=== PATIENT | female | born 1980 | race Caucasian/White ===

== ENCOUNTER 2016-08-10 15:31 | Inpatient (IN) | payer BC ==
[~2016-08-10] VITALS: Ht 170.2 cm; Wt 85.3 kg
[~2016-08-10 15:31] MED LIST: ALBUAER19 INH; BNT20 PO; FURO20TA PO; OMEP40CA36 PO; PEDICHW53 PO; PRVHFAIN INH; SPRN100 PO; TRAM-10 PO
[2016-08-10 16:30] VITALS: BP 116/78; TEMP 37.4; Ht 170.2 cm; Wt 85.3 kg
[2016-08-10 16:45] VITALS: BP 116/78; PULSE 115; TEMP 37.4; O2SAT 97
[2016-08-10] MEDS ORDERED: POTA10CA28 PO (17:37)
[2016-08-10] MEDS ORDERED: TRAM-10 PO (17:37)
[2016-08-10] MEDS ORDERED: ONDA4TAB46 PO (17:37)
[2016-08-10] MEDS ORDERED: NYSS/ (17:37)
[2016-08-10] MEDS ORDERED: ALBINS/ INH (17:37)
[2016-08-10] MEDS ORDERED: FERRTAB18 (17:37)
[2016-08-10] MEDS ORDERED: MAGN400T6 PO (17:37)
[2016-08-10] MEDS ORDERED: LEVO-459 (17:37)
[2016-08-10] MEDS ORDERED: ONDANSETRON INJ 2 MG/ML 2 ML VIAL IV PRN (18:30)
[2016-08-10] MEDS ORDERED: POLYETHYLENE (MIRALAX) 17 GM PACK PO PRN (18:30)
[2016-08-10] MEDS ORDERED: ALUMINUM/MAGNESIUM/SIMETH (MAALOX MAX) 30 ML UDC PO PRN (18:30)
[2016-08-10] MEDS ORDERED: TRAMADOL HCL 50 MG TAB PO PRN (18:45)
[2016-08-10] MEDS ORDERED: ALBUTEROL HFA 8 GM INHALER INH PRN (18:45)
--- NOTE | 2016-08-10 19:23 | History and Physical ---
History & Physical Date & Time of Service: Aug 10, 2016 at 19:18 Chief Complaint: Pneumonia Primary Care Physician: Roxie Frost M.D. History of Present Illness Source: patient, hospital records 36 Yr old female with PMH of JACOBO Cirrhosis, Chronic Anemia s/p Gastric Bye- pass who is currently being evaluated for liver transplant if she remains consistently abstinent from alcohol. She is admitted directly by her PCP Dr. Frost after being evaluated in her office for SOB, orthopnea, cough, abdominal pain associated with distention, lightheadedness and generalized weakness although has been afebrile. Patient was evaluated during her admission in Jul 2016 and had negative HIDA scan, CTA negative for PE and she had Normal Echocardiogram. Currently she complains of worsening SOB since last week associated with non productive cough and orthopnea, increases with exertion. She is c/o abdominal pain which is diffuse but predominantly in RUQ, increased abdominal distention, has intermittent cramps, non radiating, no aggravating/ relieving factors. Has been on Levaquin as outpatient. Denies any fever, chills, chest pain, change in weight, appetite, change in bowel habits but admits to having nausea without vomiting and increased leg swelling. HR has been running high in 110- 120. Currently no labs/imaging studies available. Past Medical/Surgical History Medical Problems: (1) Chronic anemia Status: Chronic (2) Nonalcoholic steatohepatitis (JACOBO) Status: Chronic Surgical Problems: (1) S/P gastric bypass Status: Resolved Family History Cancer Diabetes mellitus Social History Smoking Status: Never Smoker Drug Use: none Marital Status: Housing status: lives with family Occupational Status: employed Immunizations History of Influenza Vaccine: Unknown History of Tetanus Vaccine?: Yes Tetanus Immunization Date: Oct 08, 2009 Multi-Drug Resistant Organisms History of MDRO: No Allergies Coded Allergies: Dexmethylphenidate (Verified Allergy, Severe, CANNOT BREATHE, 01/28/15) Shrimp (Verified Allergy, Mild, HIVES, 01/28/15) Latex1 -Allergic Contact Dermititis (Verified Allergy, Unknown, BURNING SENSATION, RASH, RAISED WELTS, 01/27/15) Ibuprofen (Verified Adverse Reaction, Intermediate, "NOT ALLOWED" DUE TO H /O GASTRIC BYPASS, 10/07/09) Home Medications Scheduled Albuterol Sulf (Proventil 0.083% 2.5MG/3ML), 2.5 MG INH QID Dicyclomine HCl (Dicyclomine HCl), 20 MG PO BID Furosemide (Lasix), 40 MG PO DAILY Omeprazole (Prilosec), 1 CAP PO BID Pediatric Multiple Vitamin W/ (Flintstones Gummies), 2 TABS PO DAILY Potassium Chloride (Micro-K Ext Rel), 10 MEQ PO BID Spironolactone (Spironolactone), 100 MG PO DAILY Scheduled PRN Albuterol (Ventolin Hfa), 2 PUFFS INH DAILY PRN for Shortness of Breath Albuterol Inhaler (Ventolin Inhaler), 2 PUFFS INH Q4 PRN for Shortness of Breath Ondansetron Hcl (Zofran), 4 MG PO for Nausea Tramadol (Ultram), 50 MG PO Q8H PRN for Pain Tramadol (Ultram), 50 MG PO Q4H PRN for Pain Miscellaneous Medications Iron-Vitamin C (Vitron-C) Levofloxacin (Levaquin) Magnesium Oxide (Mag-Ox), 400 MG PO Nystatin (Nystatin Suspension) Review of Systems See HPI for pertinent positives & negatives. A total of 10 systems reviewed and were otherwise negative. Physical Exam Vital Signs Date Time Temp Pulse Resp B/P Pulse Ox O2 Delivery O2 Flow Rate FiO2 08/10/16 16:45 37.4 115 20 116/78 97 Room Air 08/10/16 16:30 Room Air 08/10/16 16:30 37.4 20 116/78 Room Air General Appearance: WD/WN, + mild distress Head: normocephalic, atraumatic Eyes: normal inspection, PERRL, EOMI, + abnormal sclerae exam (Has Icterus) ENT: normal ENT inspection, hearing grossly normal, TMs normal, pharynx normal Neck: supple, no adenopathy, thyroid normal, no JVD, no carotid bruits, trachea midline Respiratory/Chest: chest non-tender, normal breath sounds, + pertinent finding (Decreased breath sounds at bases B/L.) Cardiovascular: regular rate, rhythm, no gallop, no JVD, normal peripheral pulses Abdomen/GI: normal bowel sounds, + tenderness (Some pain/discomfort on deep palpation), + distended Back: normal inspection, no CVA tenderness, no muscle spasm, normal range of motion Extremities/Musculoskelatal: normal inspection, no calf tenderness, normal capillary refill, normal range of motion, + pedal edema Neurologic/Psych: alert, normal mood/affect, normal reflexes, oriented x 3 Skin: normal color, warm/dry, no rash Lymphatic: no adenopathy Diagnostics Laboratory Results Results Past 24 Hours Test 08/10/16 18:30 Range/Units Impression Assessment and Plan Worsening Ascites R/O SBP: Being admitted to Medical floor. -Ordered the initial work up including CBC, CMP, PT/PTT, U/S Abdomen. -Requested GI consult -Decision about Paracentesis after U/S is done. -Continue Lasix & Aldactone -Fluid restriction -Holding antibiotics till decision regarding paracentesis is made. Tachycardia: Likely due to intra-vascular volume depletion. -May benefit from low dose B-darrin but defer it to GI. SOB/Cough: Will follow up lab results and Chest X-Ray JACOBO Cirrhosis: Will follow up U/S Abdomen. -GI consulted -Line Manager to be abstinent from alcohol use Chronic Anemia:Labs pending S/P Gastric Bypass Surgery: Stable. DVT Prophylaxis: SCDs. Code Status : Full Code Disposition: Discharge once is clinically stable. Advanced Directives Existing Advance Directive: Yes Existing Living Will: Yes Existing Power of Soiled Linen Distributor: Yes Resuscitation Status FULL RESUSCITATION VTE Prophylaxis VTE Risk Assessment Done? Y/N: Yes Risk Level: Low Given or contraindicated: SCD's
--- NOTE | 2016-08-10 19:55 | DIAGNOSTIC IMAGING REPORT ---
CHEST 2 VIEWS ROUTINE CLINICAL HISTORY: Shortness of breath. Evaluate for pneumonia. COMPARISON STUDY: Chest radiograph July 22, 2016. FINDINGS: Lung volumes are diminished. This is unchanged. There are small bilateral pleural effusions, left larger than right. Cardiomediastinal silhouette is stable. Right mid and lower lung opacity suggests atelectasis. Left basilar opacity could reflect atelectasis or consolidation. This is unchanged. There is no evidence of pulmonary edema IMPRESSION: 1. Diminished lung volumes with right basilar atelectasis. Left basilar opacity could reflect atelectasis or consolidation. 2. Small bilateral pleural effusions. Electronically signed by: Liborio Smith M.D. 08/10/2016 7:53 PM Dictated Date/Time: 08/10/2016 7:52 PM
[2016-08-10] MEDS: ALBUTEROL 0.083% NEBU SOLN 3 ML VIAL INH SCH (20:00)
[2016-08-10 20:24] LABS: BASO % 0.1 %; BASO ABS # 0.02 K/uL (0-0.2); EOS % 0.9 %; HEMATOCRIT 27.6 % (37-47); IG% 0.4 %; LYMPH % 17.1 %; LYMPH ABS # 2.82 K/uL (1.2-3.4); MEAN CELL VOLUME 87.6 fL (80-100); MEAN CORPUSCULAR HEMOGLOBIN 29.2 pg (25-34); MEAN CORPUSCULAR HGB CONC 33.3 g/dl (32-36); MEAN PLATELET VOLUME 11.3 fL (7.4-10.4); MONO % 5.6 %; NEUT % 75.9 %; PLATELET COUNT 202 K/uL (130-400); RED BLOOD COUNT 3.15 M/uL (4.2-5.4); WHITE BLOOD COUNT 16.49 K/uL (4.8-10.8)
[2016-08-10] MEDS: NYSTATIN SUSP 500,000 U/5 ML UDC BU SCH (20:24)
[2016-08-10] MEDS: DICYCLOMINE HCL 20 MG TAB PO SCH (20:25)
[2016-08-10] MEDS: PANTOprazole SOD 40 MG TAB PO SCH (20:26)
[2016-08-10 20:43] LABS: INR 2.5 (0.9-1.1); PARTIAL THROMBOPLASTIN RATIO 1.8; PROTHROMBIN TIME (PATIENT) 28.1 SECONDS (9.0-12.0)
[2016-08-10 20:50] LABS: ALB/GLOB RATIO 0.4 (0.9-2); ALKALINE PHOSPHATASE 144 U/L (45-117); ALT/SGPT 15 U/L (12-78); BLOOD UREA NITROGEN 5 mg/dl (7-18); BUN/CREATININE RATIO 5.2 (10-20); CALCIUM 7.8 mg/dl (8.5-10.1); CARBON DIOXIDE 28 mmol/L (21-32); CHLORIDE 97 mmol/L (98-107); GLUCOSE 82 mg/dl (70-99); SODIUM 134 mmol/L (136-145)
[2016-08-10 20:56] LABS: ANISOCYTOSIS PRESENT; COMPLETE YES; POLYCHROMASIA 1+; TARGET CELLS 1+
--- NOTE | 2016-08-10 21:19 | DIAGNOSTIC IMAGING REPORT ---
ULTRASOUND TO ASSESS FOR ASCITES CLINICAL HISTORY: Cirrhosis. Assess ascites. COMPARISON STUDY: Abdominal ultrasound July 22, 2016 FINDINGS: Incidental note was made of a left pleural effusion. A small to moderate amount of ascites was noted within the abdomen and pelvis. IMPRESSION: Small to moderate ascites. Electronically signed by: Liborio Smith M.D. 08/10/2016 9:17 PM Dictated Date/Time: 08/10/2016 9:15 PM
[2016-08-10 22:00] LABS: MAGNESIUM 1.5 mg/dl (1.8-2.4); POTASSIUM 3.4 mmol/L (3.5-5.1)
[2016-08-10] MEDS: POTASSIUM CHLORIDE 10 MEQ TABCR PO SCH (22:45)
[2016-08-10 23:26] VITALS: BP 93/58; PULSE 108; TEMP 37; O2SAT 92
[2016-08-11] VITALS (8 sets, daily range): BP systolic 93–97; BP diastolic 56–61; PULSE 79–115; TEMP 36.7–36.8; O2SAT 92–98
[2016-08-11] MEDS: ALBUTEROL 0.083% NEBU SOLN 3 ML VIAL INH SCH ×4 (07:36→19:14)
[2016-08-11 07:44] LABS: BASO % 0.1 %; BASO ABS # 0.01 K/uL (0-0.2); EOS % 1.1 %; HEMATOCRIT 25.9 % (37-47); IG% 0.3 %; LYMPH % 15.5 %; LYMPH ABS # 1.91 K/uL (1.2-3.4); MEAN CELL VOLUME 87.8 fL (80-100); MEAN CORPUSCULAR HEMOGLOBIN 29.5 pg (25-34); MEAN CORPUSCULAR HGB CONC 33.6 g/dl (32-36); MEAN PLATELET VOLUME 11.4 fL (7.4-10.4); PLATELET COUNT 170 K/uL (130-400); RED BLOOD COUNT 2.95 M/uL (4.2-5.4); WHITE BLOOD COUNT 12.35 K/uL (4.8-10.8)
[2016-08-11] MEDS ORDERED: MAGNESIUM OXIDE 400 MG TAB PO SCH (08:00)
[2016-08-11 08:10] LABS: COMPLETE YES; MICROCYTOSIS PRESENT; TARGET CELLS 1+
[2016-08-11 08:13] LABS: BUN/CREATININE RATIO 4.9 (10-20); CREATININE 0.95 mg/dl (0.60-1.20); POTASSIUM 3.2 mmol/L (3.5-5.1)
[2016-08-11] MEDS: PANTOprazole SOD 40 MG TAB PO SCH ×2 (08:29→19:54)
[2016-08-11] MEDS: DICYCLOMINE HCL 20 MG TAB PO SCH ×2 (08:29→19:53)
[2016-08-11] MEDS: FUROSEMIDE 20 MG TAB PO SCH (08:29)
[2016-08-11] MEDS: SPIRONOLACTONE 100 MG TAB PO SCH (08:30)
[2016-08-11] MEDS: NYSTATIN SUSP 500,000 U/5 ML UDC BU SCH ×3 (08:30→19:53)
[2016-08-11] MEDS: POTASSIUM CHLORIDE 10 MEQ TABCR PO SCH ×2 (08:31→20:52)
[2016-08-11 08:45] LABS: MANUAL MICROSCOPIC REQUIRED? YES; URINE APPEARANCE CLOUDY (CLEAR); URINE COLOR AMBER; URINE NITRITE NEG (NEG); URINE SPECIFIC GRAVITY >= 1.030 (1.000-1.030); UROBILINOGEN NEG (NEG)
[2016-08-11 08:47] LABS: REVIEW REQ? NO; URINE BILIRUBIN 2+ (NEG)
[2016-08-11 09:45] LABS: URINE AMORPHOUS SEDIMENT PRESENT (NONE PRSENT); URINE MUCUS PRESENT (NONE PRSENT); URINE RBC 0-4 /hpf (0-4)
[2016-08-11 09:46] LABS: URINE BACTERIA 1+ (NEG)
--- NOTE | 2016-08-11 12:46 | Gastrointestinal Consultation ---
Gastrointestinal Consultation Date of Consultation: Aug 11, 2016 Consulting Physician: Dr. Mendoza Reason for Consultation: cirrhosis History of Present Illness Patient is a 36 year old female who was recently admitted 07/05/16 and 07/23/16 for abnormal LFTs, abd pain and anemia with past medical history significant for JACOBO, anemia, obesity (s/p gastric bypass) who was directly admitted from a PCP office for concern regarding her white count, diminished lung sounds and elevated total bilirubin. She states that she was discharged last admission and still was not feeling well, noting much difficulty breathing and SOB with activity. GI was consulted for ongoing management of liver disease and evaluation of ascites, abd distention. She denies any chance in her abdominal girth or worsening distention. She denies any new lower extremity edema. Denies weight gain. She states that she has been taking her medications as prescribed and has been abstaining from alcohol. However, she was not following a low sodium, fluid restricted diet. Abdominal pain is unchanged from previous admissions, bilateral upper quadrants and epigastric in location, does not radiate and is intermittent. She described the pain as cramping. She denies chest pain, fever, chills, weight gain/loss, bloody/black stools. Most recent labs as patient refused repeat liver profile and ammonia at this time as she did not want another needle stick today: INR: 2.5 PT: 28 PTT: 47 PLT: 170 TB 5.2 AST: 93 ALT:15 ALKP:155 HGB 8.7 HCT 25.9 US abdomen 08/11/16: Incidental note was made of a left pleural effusion. A small to moderate amount of ascites was noted within the abdomen and pelvis. US abdomen 07/22/16 : Small to mild amount of scattered ascites within the abdomen and pelvis US liver 07/22/16 : Small progressive accumulation of gallbladder sludge compared to the prior study. Minimal prominence of the gallbladder wall. Biliary ductal system remains unremarkable 5 mm. Liver remains heterogeneous. Bidirectional flow within the portal venous structures is again noted. Pancreas and right kidney are unremarkable. Last colonoscopy and EGD were done in 2014. Both reports were normal. Past Medical/Surgical History Medical Problems: (1) Abnormal LFTs Status: Acute (2) Anemia Status: Acute (3) Hyperammonemia Status: Acute (4) Hypokalemia Status: Acute (5) JACOBO (nonalcoholic steatohepatitis) Status: Acute (6) Upper abdominal pain Status: Acute Family History Cancer Diabetes mellitus Social History Smoking Status: Never Smoker Alcohol Use: occasionally Drug Use: none Marital Status: Housing Status: lives with family Occupation Status: employed Allergies Coded Allergies: Dexmethylphenidate (Verified Allergy, Severe, CANNOT BREATHE, 01/28/15) Shrimp (Verified Allergy, Mild, HIVES, 01/28/15) Latex1 -Allergic Contact Dermititis (Verified Allergy, Unknown, BURNING SENSATION, RASH, RAISED WELTS, 01/27/15) Ibuprofen (Verified Adverse Reaction, Intermediate, "NOT ALLOWED" DUE TO H /O GASTRIC BYPASS, 10/07/09) Current Medications Home Meds and Scripts Medications Dose Route/Sig Max Daily Dose Days Date Category Proventil 0.083% 2.5MG/3ML (Albuterol Sulf) 2.5 Mg/3 Ml Nebu 2.5 Mg INH QID 08/10/16 Reported Vitron-C (Iron-Vitamin C) 1 Tab Tab 08/10/16 Reported Mag-Ox (Magnesium Oxide) 400 Mg Tab 400 Mg PO 08/10/16 Reported Levaquin (Levofloxacin) 500 Mg Tab 08/10/16 Reported Zofran (Ondansetron HCl) 4 Mg Tab 4 Mg PO PRN 08/10/16 Reported Ultram (Tramadol HCl) 50 Mg Tab 50 Mg PO Q4H PRN 08/10/16 Reported Nystatin Suspension (Nystatin) 1 Ml Susp 08/10/16 Reported Micro-K Ext Rel (Potassium Chloride) 10 Meq Capcr 10 Meq PO BID 08/10/16 Reported Ultram (Tramadol HCl) 50 Mg Tab 50 Mg PO Q8H PRN 07/25/16 Rx Spironolactone 100 Mg Tab 100 Mg PO DAILY 30 07/25/16 Rx Lasix (Furosemide) 20 Mg Tab 40 Mg PO DAILY 30 07/25/16 Rx Prilosec (Omeprazole) 40 Mg Cap 1 Cap PO BID 90 07/07/16 Rx Ventolin Hfa (Albuterol) 60 Puffs/5400 Mcg Aers 2 Puffs INH DAILY PRN 30 07/07/16 Rx Dicyclomine HCl 20 Mg Tab 20 Mg PO BID 30 07/07/16 Rx Flintstones Gummies (Pediatric Multiple Vitamin W/) 1 Chw Chw 2 Tabs PO DAILY 07/05/16 Reported Ventolin Inhaler (Albuterol) Aers 2 Puffs INH Q4 PRN 01/27/15 Reported Review of Systems Constitutional: No chills, No fever Respiratory: + cough, + shortness of breath Cardiac: No chest pain, No edema Abdomen: + nausea, + pain, No GI bleeding, No constipation, No diarrhea, No vomiting Neuro: + numbness/tingling (bilateral extremeities - she states she made the hospitalist aware of this new finding ) Skin: + itch, + jaundice, No bleeding, No color change Physical Exam Date Time Temp Pulse Resp B/P Pulse Ox O2 Delivery O2 Flow Rate FiO2 08/11/16 11:16 85 18 98 Room Air 08/11/16 08:00 92 Room Air 08/11/16 07:36 111 18 92 Room Air 08/11/16 07:32 36.7 102 20 93/56 93 Room Air 08/11/16 02:38 85 18 97 Room Air 08/11/16 00:43 Room Air 08/10/16 23:26 37.0 108 16 93/58 92 Room Air 08/10/16 16:45 37.4 115 20 116/78 97 Room Air 08/10/16 16:30 Room Air 08/10/16 16:30 37.4 20 116/78 Room Air General Appearance: no apparent distress Eyes: PERRL ENT: hearing grossly normal Neck: supple, trachea midline Respiratory/Chest: lungs clear, no respiratory distress, no accessory muscle use, + decreased breath sounds (dimished breaht sounds bilaterally at the base ) Cardiovascular: regular rate, rhythm, no edema, no gallop, no JVD, no murmur Abdomen: normal bowel sounds, soft, no organomegaly, no pulsatile mass, + tenderness (diffuse tenderness x 4 quadrants ) Neurologic/Psych: alert, normal mood/affect, oriented x 3 Skin: warm/dry, no rash, + jaundice Laboratory Results Last 24 Hours Test 08/10/16 20:15 08/10/16 21:22 08/11/16 07:09 08/11/16 08:08 White Blood Count 16.49 K/uL 12.35 K/uL Red Blood Count 3.15 M/uL 2.95 M/uL Hemoglobin 9.2 g/dL 8.7 g/dL Hematocrit 27.6 % 25.9 % Mean Corpuscular Volume 87.6 fL 87.8 fL Mean Corpuscular Hemoglobin 29.2 pg 29.5 pg Mean Corpuscular Hemoglobin Concent 33.3 g/dl 33.6 g/dl Platelet Count 202 K/uL 170 K/uL Mean Platelet Volume 11.3 fL 11.4 fL Neutrophils (%) (Auto) 75.9 % 76.0 % Lymphocytes (%) (Auto) 17.1 % 15.5 % Monocytes (%) (Auto) 5.6 % 7.0 % Eosinophils (%) (Auto) 0.9 % 1.1 % Basophils (%) (Auto) 0.1 % 0.1 % Neutrophils # (Auto) 12.51 K/uL 9.39 K/uL Lymphocytes # (Auto) 2.82 K/uL 1.91 K/uL Monocytes # (Auto) 0.93 K/uL 0.86 K/uL Eosinophils # (Auto) 0.15 K/uL 0.14 K/uL Basophils # (Auto) 0.02 K/uL 0.01 K/uL RDW Standard Deviation 68.8 fL 70.4 fL RDW Coefficient of Variation 22.2 % 22.7 % Immature Granulocyte % (Auto) 0.4 % 0.3 % Immature Granulocyte # (Auto) 0.06 K/uL 0.04 K/uL Polychromasia 1+ Anisocytosis PRESENT Target Cells 1+ 1+ Prothrombin Time 28.1 SECONDS Prothromb Time International Ratio 2.5 Activated Partial Thromboplast Time 46.7 SECONDS Partial Thromboplastin Ratio 1.8 Sodium Level 134 mmol/L 137 mmol/L Potassium Level mmol/L 3.4 mmol/L 3.2 mmol/L Chloride Level 97 mmol/L 97 mmol/L Carbon Dioxide Level 28 mmol/L 27 mmol/L Anion Gap 9.0 mmol/L 13.0 mmol/L Blood Urea Nitrogen 5 mg/dl 5 mg/dl Creatinine 1.00 mg/dl 0.95 mg/dl Est Creatinine Clear Calc Drug Dose 89.0 ml/min 93.6 ml/min Estimated GFR () 85.1 90.6 Estimated GFR (Non- 73.5 78.1 BUN/Creatinine Ratio 5.2 4.9 Random Glucose 82 mg/dl 79 mg/dl Calcium Level 7.8 mg/dl 8.0 mg/dl Magnesium Level mg/dl 1.5 mg/dl Total Bilirubin 5.2 mg/dl Aspartate Amino Transf (AST/SGOT) U/L 93 U/L Alanine Aminotransferase (ALT/SGPT) 15 U/L Alkaline Phosphatase 144 U/L Total Protein 6.7 gm/dl Albumin 1.8 gm/dl Globulin 4.9 gm/dl Albumin/Globulin Ratio 0.4 Lipase 72 U/L Microcytosis PRESENT Urine Color MIKEY Urine Appearance CLOUDY Urine pH 5.0 Urine Specific [place] >= 1.030 Urine Protein TRACE Urine Glucose (UA) NEG Urine Ketones NEG Urine Occult Blood NEG Urine Nitrite NEG Urine Bilirubin 2+ Urine Urobilinogen NEG Urine Leukocyte Esterase NEG Urine RBC 0-4 /hpf Urine WBC 5-10 /hpf Urine Epithelial Cells 10-20 /lpf Urine Amorphous Sediment PRESENT Urine Bacteria 1+ Urine Hyaline Casts 5-10 /lpf Urine Mucus PRESENT Test 08/11/16 11:57 Impression Patient is a 36 year old female with intermittent abdominal cramping in bilateral upper quadrants and epigastric region (unchanged from previous admission and outpatient appointments) trace abdominal ascites, minimal lower extremity edema with elevated coags, rising Tbili and a Maddrey score today of 74.4 - differentials include biliary colic, PUD, GERD, decompensation from liver disease, alcoholic hepatitis Plan Plan Diet as tolerated salt restriction fluid restriction continue PPI 40 mg BID continue dicyclomine 20 mg TID for cramping. continue Lasix 20 mg daily increase spironolactone 100 mg daily VIT K 5mg daily trend H&H transfuse PRN Prednisolone 32 mg x 1 month for treatment of alcoholic hepatitis - Maddrey score >32 points indicates poor prognosis and patient may benefit from glucocorticoid therapy Diflucan 200 mg PO x 1 dose Diflucan 100 mg PO x 14 days 08/11/16 Maddrey score: 74.4 07/23/16 Maddrey Score: 32 07/05/16 Maddrey Score: 22.8 08/11/16 Meld score: 17 GI will continue to follow and offer input. We suggest keeping the patient to monitor overnight. ATTESTATION: I have performed a history and physical examination of this patient and reviewed the electronic record. Specifically, on physical examination there is diffuse abdominal tenderness without guarding or rebound. I have discussed the case with DUNG Glover. The above note reflects my findings, conclusions, and recommendations. Azam Mendoza MD
[2016-08-11] MEDS: MAGNESIUM OXIDE 400 MG TAB PO SCH (12:58)
[2016-08-11] MEDS ORDERED: METHYLPREDNISOLONE 16 MG TAB PO ONE (14:00)
[2016-08-11] MEDS ORDERED: PHYTONADIONE 5 MG TAB PO ONE (14:08)
[2016-08-11] MEDS ORDERED: FLUCONAZOLE 100 MG TAB PO ONE (14:30)
--- NOTE | 2016-08-11 18:26 | Progress Note ---
Medicine Progress Note Date & Time of Visit: Aug 11, 2016 at 18:16. Subjective Patient seen and examined. Feels about the same today as she has been feeling. Still with intermittent crampy abdominal pain. Still with poor appetite. Objective Last 8 Hrs Date Time Temp Pulse Resp B/P Pulse Ox O2 Delivery O2 Flow Rate FiO2 08/11/16 16:07 85 18 98 Room Air 08/11/16 16:00 Room Air 08/11/16 15:37 36.8 115 16 97/61 97 Room Air 08/11/16 11:16 85 18 98 Room Air Physical Exam: General-awake; alert; NAD Eyes-EOMI; no scleral icterus Neck-no stridor; trachea midline Lungs-CTA bilaterally; no wheezes/crackles Heart-RRR; no m/r/g Abdomen-soft; mildly diffusely tender; nBS Extremities-trace LE edema; no deformity Neuro-no focal deficits Laboratory Results: Last 24 Hours Test 08/10/16 20:15 08/10/16 21:22 08/11/16 07:09 08/11/16 08:08 White Blood Count 16.49 K/uL 12.35 K/uL Red Blood Count 3.15 M/uL 2.95 M/uL Hemoglobin 9.2 g/dL 8.7 g/dL Hematocrit 27.6 % 25.9 % Mean Corpuscular Volume 87.6 fL 87.8 fL Mean Corpuscular Hemoglobin 29.2 pg 29.5 pg Mean Corpuscular Hemoglobin Concent 33.3 g/dl 33.6 g/dl Platelet Count 202 K/uL 170 K/uL Mean Platelet Volume 11.3 fL 11.4 fL Neutrophils (%) (Auto) 75.9 % 76.0 % Lymphocytes (%) (Auto) 17.1 % 15.5 % Monocytes (%) (Auto) 5.6 % 7.0 % Eosinophils (%) (Auto) 0.9 % 1.1 % Basophils (%) (Auto) 0.1 % 0.1 % Neutrophils # (Auto) 12.51 K/uL 9.39 K/uL Lymphocytes # (Auto) 2.82 K/uL 1.91 K/uL Monocytes # (Auto) 0.93 K/uL 0.86 K/uL Eosinophils # (Auto) 0.15 K/uL 0.14 K/uL Basophils # (Auto) 0.02 K/uL 0.01 K/uL RDW Standard Deviation 68.8 fL 70.4 fL RDW Coefficient of Variation 22.2 % 22.7 % Immature Granulocyte % (Auto) 0.4 % 0.3 % Immature Granulocyte # (Auto) 0.06 K/uL 0.04 K/uL Polychromasia 1+ Anisocytosis PRESENT Target Cells 1+ 1+ Prothrombin Time 28.1 SECONDS Prothromb Time International Ratio 2.5 Activated Partial Thromboplast Time 46.7 SECONDS Partial Thromboplastin Ratio 1.8 Sodium Level 134 mmol/L 137 mmol/L Potassium Level mmol/L 3.4 mmol/L 3.2 mmol/L Chloride Level 97 mmol/L 97 mmol/L Carbon Dioxide Level 28 mmol/L 27 mmol/L Anion Gap 9.0 mmol/L 13.0 mmol/L Blood Urea Nitrogen 5 mg/dl 5 mg/dl Creatinine 1.00 mg/dl 0.95 mg/dl Est Creatinine Clear Calc Drug Dose 89.0 ml/min 93.6 ml/min Estimated GFR () 85.1 90.6 Estimated GFR (Non- 73.5 78.1 BUN/Creatinine Ratio 5.2 4.9 Random Glucose 82 mg/dl 79 mg/dl Calcium Level 7.8 mg/dl 8.0 mg/dl Magnesium Level mg/dl 1.5 mg/dl Total Bilirubin 5.2 mg/dl 4.3 mg/dl Aspartate Amino Transf (AST/SGOT) U/L 93 U/L 79 U/L Alanine Aminotransferase (ALT/SGPT) 15 U/L 12 U/L Alkaline Phosphatase 144 U/L 125 U/L Total Protein 6.7 gm/dl 6.0 gm/dl Albumin 1.8 gm/dl 1.6 gm/dl Globulin 4.9 gm/dl Albumin/Globulin Ratio 0.4 Lipase 72 U/L Microcytosis PRESENT Direct Bilirubin 3.2 mg/dl Urine Color MIKEY Urine Appearance CLOUDY Urine pH 5.0 Urine Specific [place] >= 1.030 Urine Protein TRACE Urine Glucose (UA) NEG Urine Ketones NEG Urine Occult Blood NEG Urine Nitrite NEG Urine Bilirubin 2+ Urine Urobilinogen NEG Urine Leukocyte Esterase NEG Urine RBC 0-4 /hpf Urine WBC 5-10 /hpf Urine Epithelial Cells 10-20 /lpf Urine Amorphous Sediment PRESENT Urine Bacteria 1+ Urine Hyaline Casts 5-10 /lpf Urine Mucus PRESENT Assessment & Plan Patient is a 36 y/o female with JACOBO cirrhosis, now with possible alcoholic hepatitis. Possible alcoholic hepatitis - GI consulted - started on methylprednisolone JACOBO cirrhosis - GI consulted - continue Lasix and Spironolactone - continue magnesium and potassium supplementation - started on vitamin K Leukocytosis - improved without intervention - CXR unchanged from previous; no clinical suspicion of pneumonia - no indication for paracentesis at this time (small to moderate ascites is unchanged and patient's abdominal symptoms are unchanged) - urinalysis with bland sediment and squamous cells Anticipate discharge home tomorrow. Consultants: Gastroenterology Procedures: Abdominal ultrasound Small to moderate ascites. CXR Lung volumes are diminished. This is unchanged. There are small bilateral pleural effusions, left larger than right. Cardiomediastinal silhouette is stable. Right mid and lower lung opacity suggests atelectasis. Left basilar opacity could reflect atelectasis or consolidation. This is unchanged. There is no evidence of pulmonary edema Current Inpatient Medications: Current Inpatient Medications Medications (Trade) Dose Ordered Sig/Jakub Route Start Time Stop Time Status Last Admin Dose Admin Al Hydrox/Mg Hydrox/Simethicone (Maalox Max Susp) 15 ml Q4H PRN PO 08/10/16 18:30 09/09/16 18:29 Polyethylene (Miralax Powder Packet) 17 gm DAILY PRN PO 08/10/16 18:30 09/09/16 18:29 Ondansetron HCl (Zofran Inj) 4 mg Q6H PRN IV 08/10/16 18:30 09/09/16 18:29 08/11/16 14:59 4 MG Albuterol (Ventolin Hfa Inhaler) 2 puffs DAILY PRN INH 08/10/16 18:45 09/09/16 18:44 Albuterol Sulfate (Ventolin 0.083% 2.5MG/3ML Neb) 2.5 mg QIDR INH 08/10/16 20:00 09/09/16 19:59 08/11/16 16:05 2.5 MG Dicyclomine HCl (Bentyl Tab) 20 mg BID PO 08/10/16 20:00 09/09/16 19:59 08/11/16 08:29 20 MG Furosemide (Lasix tab) 40 mg DAILY PO 08/11/16 08:00 09/10/16 07:59 08/11/16 08:29 40 MG Nystatin (Mycostatin Susp) 5 ml TID BU 08/10/16 20:00 09/09/16 19:59 08/11/16 08:30 5 ML Spironolactone (Aldactone Tab) 100 mg DAILY PO 08/11/16 08:00 09/10/16 07:59 08/11/16 08:30 100 MG Tramadol HCl (Ultram Tab) 50 mg Q8H PRN PO 08/10/16 18:45 09/09/16 18:44 08/11/16 15:02 50 MG Pantoprazole Sodium (Protonix Tab) 40 mg BID PO 08/10/16 20:00 09/09/16 19:59 08/11/16 08:29 40 MG Potassium Chloride (Klor-Con Tab) 20 meq BID PO 08/11/16 20:00 09/10/16 19:59 Magnesium Oxide (Mag-Ox Tab) 400 mg QAM PO 08/11/16 09:00 09/10/16 08:59 08/11/16 12:58 400 MG Methylprednisolone (Medrol Tab) 32 mg DAILY PO 08/12/16 08:00 09/11/16 07:59 Phytonadione (Mephyton Tab) 10 mg DAILY PO 08/12/16 08:00 09/11/16 07:59 Fluconazole (Diflucan Tab) 100 mg DAILY PO 08/12/16 08:00 08/24/16 23:59
[2016-08-11] MEDS ORDERED: POTASSIUM CHLORIDE 20 MEQ TABCR PO SCH (20:00)
[2016-08-11] MEDS ORDERED: NURSING DECISION MEDICATION ORDER SCH (20:15)
[2016-08-12 00:11] VITALS: BP 95/60; PULSE 94; TEMP 36.7; O2SAT 97
[2016-08-12 07:12] VITALS: PULSE 102; O2SAT 93
[2016-08-12] MEDS: ALBUTEROL 0.083% NEBU SOLN 3 ML VIAL INH SCH ×2 (07:12→11:03)
[2016-08-12 07:59] LABS: MEAN CELL VOLUME 88.6 fL (80-100); MEAN CORPUSCULAR HEMOGLOBIN 30.1 pg (25-34); MEAN CORPUSCULAR HGB CONC 33.9 g/dl (32-36); MEAN PLATELET VOLUME 10.9 fL (7.4-10.4); PLATELET COUNT 203 K/uL (130-400); RED BLOOD COUNT 3.16 M/uL (4.2-5.4); WHITE BLOOD COUNT 16.88 K/uL (4.8-10.8)
[2016-08-12 08:00] VITALS: O2SAT 92
[2016-08-12] MEDS ORDERED: PHYTONADIONE 5 MG TAB PO SCH (08:00)
[2016-08-12] MEDS ORDERED: METHYLPREDNISOLONE 16 MG TAB PO SCH (08:00)
[2016-08-12] MEDS: NYSTATIN SUSP 500,000 U/5 ML UDC BU SCH ×2 (08:00→14:00)
[2016-08-12] MEDS ORDERED: FLUCONAZOLE 100 MG TAB PO SCH (08:00)
[2016-08-12 08:07] LABS: INR 1.8 (0.9-1.1); PROTHROMBIN TIME (PATIENT) 19.7 SECONDS (9.0-12.0)
[2016-08-12 08:18] VITALS: BP 101/62; PULSE 102; TEMP 36.7; O2SAT 91
[2016-08-12] MEDS: POTASSIUM CHLORIDE 10 MEQ TABCR PO SCH (08:27)
[2016-08-12] MEDS: FUROSEMIDE 20 MG TAB PO SCH (08:28)
[2016-08-12] MEDS: MAGNESIUM OXIDE 400 MG TAB PO SCH (08:28)
[2016-08-12] MEDS: PANTOprazole SOD 40 MG TAB PO SCH (08:28)
[2016-08-12] MEDS: SPIRONOLACTONE 100 MG TAB PO SCH (08:28)
[2016-08-12] MEDS: DICYCLOMINE HCL 20 MG TAB PO SCH (08:29)
[2016-08-12 08:35] LABS: ALB/GLOB RATIO 0.4 (0.9-2); BUN/CREATININE RATIO 5.5 (10-20); CALCIUM 8.1 mg/dl (8.5-10.1); CREATININE 1.1 mg/dl (0.60-1.20); POTASSIUM 3.8 mmol/L (3.5-5.1)
--- NOTE | 2016-08-12 09:48 | Gastroenterology Progress Note ---
Progress Note Date of Service: Aug 12, 2016 Subjective Pt evaluation today including: conversation w/ patient, physical exam, chart review Patient was seen and examined this morning. She was tearful during exam stating she now realizes how serious her liver disease is and is fearful for the future. She denies any anxiety or depression, stating she is just feeling very overwhelmed. She denies any SI or idea of self harm. She denies any new GI complaints at the time. She continues with intermittent abdominal cramping typically after meals. The cramping does not radiate and is typically in the upper quadrants. She denies any N/V/D or constipation. Review of Systems Constitutional: No chills, No fever Respiratory: + cough, No shortness of breath Cardiac: + edema, No chest pain Abdomen: + pain (cramping typically post-prandial ), No GI bleeding, No constipation, No diarrhea, No nausea, No vomiting Medications Current Inpatient Medications Medications (Trade) Dose Ordered Sig/Jakub Route Start Time Stop Time Status Last Admin Dose Admin Al Hydrox/Mg Hydrox/Simethicone (Maalox Max Susp) 15 ml Q4H PRN PO 08/10/16 18:30 09/09/16 18:29 Polyethylene (Miralax Powder Packet) 17 gm DAILY PRN PO 08/10/16 18:30 09/09/16 18:29 Ondansetron HCl (Zofran Inj) 4 mg Q6H PRN IV 08/10/16 18:30 09/09/16 18:29 08/11/16 14:59 4 MG Albuterol (Ventolin Hfa Inhaler) 2 puffs DAILY PRN INH 08/10/16 18:45 09/09/16 18:44 Albuterol Sulfate (Ventolin 0.083% 2.5MG/3ML Neb) 2.5 mg QIDR INH 08/10/16 20:00 09/09/16 19:59 08/12/16 07:12 2.5 MG Dicyclomine HCl (Bentyl Tab) 20 mg BID PO 08/10/16 20:00 09/09/16 19:59 08/12/16 08:29 20 MG Furosemide (Lasix tab) 40 mg DAILY PO 08/11/16 08:00 09/10/16 07:59 08/12/16 08:28 40 MG Nystatin (Mycostatin Susp) 5 ml TID BU 08/10/16 20:00 09/09/16 19:59 08/11/16 08:30 5 ML Spironolactone (Aldactone Tab) 100 mg DAILY PO 08/11/16 08:00 09/10/16 07:59 08/12/16 08:28 100 MG Tramadol HCl (Ultram Tab) 50 mg Q8H PRN PO 08/10/16 18:45 09/09/16 18:44 08/11/16 15:02 50 MG Pantoprazole Sodium (Protonix Tab) 40 mg BID PO 08/10/16 20:00 09/09/16 19:59 08/12/16 08:28 40 MG Magnesium Oxide (Mag-Ox Tab) 400 mg QAM PO 08/11/16 09:00 09/10/16 08:59 08/12/16 08:28 400 MG Methylprednisolone (Medrol Tab) 32 mg DAILY PO 08/12/16 08:00 09/11/16 07:59 08/12/16 08:29 32 MG Phytonadione (Mephyton Tab) 10 mg DAILY PO 08/12/16 08:00 09/11/16 07:59 08/12/16 08:29 10 MG Fluconazole (Diflucan Tab) 100 mg DAILY PO 08/12/16 08:00 08/24/16 23:59 08/12/16 08:27 100 MG Potassium Chloride (Klor-Con M10) 20 meq BID PO 08/11/16 20:30 09/10/16 20:29 08/12/16 08:27 20 MEQ Objective Vital Signs Date Time Temp Pulse Resp B/P Pulse Ox O2 Delivery O2 Flow Rate FiO2 08/12/16 08:18 36.7 102 20 101/62 91 Room Air 08/12/16 08:00 92 Room Air 08/12/16 07:12 102 18 93 Room Air 08/12/16 00:11 36.7 94 18 95/60 97 Room Air 08/12/16 00:05 Room Air 08/11/16 20:05 Room Air 08/11/16 19:17 79 18 93 Room Air 08/11/16 16:07 85 18 98 Room Air 08/11/16 16:00 Room Air 08/11/16 15:37 36.8 115 16 97/61 97 Room Air 08/11/16 11:16 85 18 98 Room Air Physical Exam General Appearance: + mild distress (patient is tearful during assessment) Eyes: PERRL ENT: hearing grossly normal Neck: supple, trachea midline Respiratory/Chest: lungs clear, normal breath sounds, no respiratory distress, no accessory muscle use, + decreased breath sounds (decreased bilaterally ) Cardiovascular: regular rate, rhythm, no gallop, no JVD, no murmur, + pertinent finding (bilaterally lower extremity edema, 1+ non pitting) Abdomen: normal bowel sounds, non tender, soft, no organomegaly, no pulsatile mass Neurologic/Psych: alert, normal mood/affect, oriented x 3 Skin: warm/dry, no rash, + jaundice Laboratory Results Last 24 Hours Test 08/12/16 07:45 White Blood Count 16.88 K/uL Red Blood Count 3.16 M/uL Hemoglobin 9.5 g/dL Hematocrit 28.0 % Mean Corpuscular Volume 88.6 fL Mean Corpuscular Hemoglobin 30.1 pg Mean Corpuscular Hemoglobin Concent 33.9 g/dl RDW Standard Deviation 70.9 fL RDW Coefficient of Variation 23.1 % Platelet Count 203 K/uL Mean Platelet Volume 10.9 fL Prothrombin Time 19.7 SECONDS Prothromb Time International Ratio 1.8 Sodium Level 135 mmol/L Potassium Level 3.8 mmol/L Chloride Level 96 mmol/L Carbon Dioxide Level 27 mmol/L Anion Gap 12.0 mmol/L Blood Urea Nitrogen 6 mg/dl Creatinine 1.10 mg/dl Est Creatinine Clear Calc Drug Dose 80.9 ml/min Estimated GFR () 75.9 Estimated GFR (Non- 65.5 BUN/Creatinine Ratio 5.5 Random Glucose 112 mg/dl Calcium Level 8.1 mg/dl Magnesium Level 2.0 mg/dl Total Bilirubin 4.1 mg/dl Direct Bilirubin 3.4 mg/dl Aspartate Amino Transf (AST/SGOT) 67 U/L Alanine Aminotransferase (ALT/SGPT) 12 U/L Alkaline Phosphatase 139 U/L Ammonia 15.0 umol/L Total Protein 6.7 gm/dl Albumin 1.8 gm/dl Globulin 4.9 gm/dl Albumin/Globulin Ratio 0.4 Assessment and Plan Patient is a 36 year old female with alcoholic hepatitis who started treatment with methylprednisone on 08/11/16 with intermittent abdominal cramping in bilateral upper quadrants and epigastric region (unchanged from previous admission and outpatient appointments) trace abdominal ascites, minimal lower extremity edema with elevated coags, rising Tbili Plan Diet as tolerated continue 2g salt restriction continue fluid restriction continue PPI 40 mg BID continue dicyclomine 20 mg TID for cramping. continue Lasix 20 mg daily increase spironolactone 100 mg daily VIT K 5mg daily trend H&H transfuse PRN Prednisolone 32 mg x 1 month for treatment of alcoholic hepatitis - Maddrey score >32 points indicates poor prognosis and patient may benefit from glucocorticoid therapy Diflucan 100 mg PO x 14 days d/c nystatin 08/12/16 Maddrey score: 37 08/11/16 Maddrey score: 74.4 08/12/16 Meld score: 15 08/11/16 Meld score: 17 ATTESTATION: I have performed a history and physical examination of this patient and reviewed the electronic record. Specifically, I spent 20 minutes discussing her condition, therapy, and prognosis with her. I have discussed the case with DUNG Glover. The above note reflects my findings, conclusions, and recommendations. Azam Mendoza MD
[2016-08-12 11:03] VITALS: PULSE 98; O2SAT 91
[2016-08-12] MEDS ORDERED: [UNRECOGNIZED DRUG - CODE] PO (11:33)
[2016-08-12] MEDS ORDERED: DFL100 PO (11:33)
[2016-08-12] MEDS ORDERED: POTA10CA28 PO (11:33)
--- NOTE | 2016-08-12 11:40 | Discharge Instructions ---
Discharge Instructions Admission Reason for Admission: Elevated white blood cell count Discharge Discharge Diagnosis / Problem: JACOBO cirrhosis Discharge Goals Goal(s): Improve function Activity Recommendations Activity Limitations: resume your previous activity . Instructions / Follow-Up Instructions / Follow-Up Please follow up with Family Medicine Dr. Frost on August 17 at 10:50am. You are currently scheduled to follow up with Gastroenterology Ivory Alberto on September 01 at 3:00pm. You will be contacted by the GI office with any appointment changes. Ivory will instruct you on a taper for the methylprednisolone (steroid). Current Hospital Diet Patient's current hospital diet: Low Sodium Diet (2gm Na) Discharge Diet Recommended Diet: Low Sodium Diet (2gm Na) Fluid Restriction: 1800 ml (7 cups) Pending Studies Studies pending at discharge: no Medical Emergencies . Who to Call and When: Medical Emergencies: If at any time you feel your situation is an emergency, please call 911 immediately. . Non-Emergent Contact Non-Emergency issues call your: Primary Care Provider, Returned Goods Repairer . . "Provider Documentation" section prepared by Paula Estrada. VTE Core Measure Inpt VTE Proph given/why not?: SCD's
[2016-08-12 13:53] VITALS: BP 101/62; PULSE 98; TEMP 36.7; O2SAT 91
--- NOTE | 2016-08-12 18:11 | Discharge Summary ---
Discharge Summary Admission Date: Aug 10, 2016 at 15:57 Discharge Date: Aug 12, 2016 Discharge Disposition: Home Principal Diagnosis: Alcoholic hepatitis Procedures: Abdominal ultrasound Small to moderate ascites. CXR Lung volumes are diminished. This is unchanged. There are small bilateral pleural effusions, left larger than right. Cardiomediastinal silhouette is stable. Right mid and lower lung opacity suggests atelectasis. Left basilar opacity could reflect atelectasis or consolidation. This is unchanged. There is no evidence of pulmonary edema Consultations: Gastroenterology Medication Reconciliation New Medications: Fluconazole (Fluconazole) 100 Mg Tab 100 MG PO DAILY for 12 Days, #12 TAB Methylprednisolone (Medrol Tab) 16 Mg Tab 32 MG PO DAILY for 28 Days, #56 TAB Changed Medications: Potassium Chloride (Micro-K Ext Rel) 10 Meq Capcr 20 MEQ PO BID for 30 Days, #120 CAP (Changed from: 10 MEQ) Continued Medications: Albuterol Inhaler (Ventolin Inhaler) Aers 2 PUFFS INH Q4 PRN for Shortness of Breath, #5 INHALER Albuterol Sulf (Proventil 0.083% 2.5MG/3ML) 2.5 Mg/3 Ml Nebu 2.5 MG INH QID, EA Dicyclomine HCl (Dicyclomine HCl) 20 Mg Tab 20 MG PO BID for 30 Days, #60 TAB Furosemide (Lasix) 20 Mg Tab 40 MG PO DAILY for 30 Days, #60 TAB Iron-Vitamin C (Vitron-C) 1 Tab Tab Magnesium Oxide (Mag-Ox) 400 Mg Tab 400 MG PO, TAB Omeprazole (Prilosec) 40 Mg Cap 1 CAP PO BID for 90 Days, #180 CAP 1 Refill Ondansetron Hcl (Zofran) 4 Mg Tab 4 MG PO PRN for Nausea, TAB Pediatric Multiple Vitamin W/ (Flintstones Gummies) 1 Chw Chw 2 TABS PO DAILY Spironolactone (Spironolactone) 100 Mg Tab 100 MG PO DAILY for 30 Days, #30 TAB Tramadol (Ultram) 50 Mg Tab 50 MG PO Q8H PRN for Pain, #20 TAB Discontinued Medications: Albuterol (Ventolin Hfa) 60 Puffs/5400 Mcg Aers 2 PUFFS INH DAILY PRN for Shortness of Breath for 30 Days, #1 INHALER 3 Refills Levofloxacin (Levaquin) 500 Mg Tab Nystatin (Nystatin Suspension) 1 Ml Susp Tramadol (Ultram) 50 Mg Tab 50 MG PO Q4H PRN for Pain, TAB Admission Information HPI (per Admitting provider): 36 Yr old female with PMH of JACOBO Cirrhosis, Chronic Anemia s/p Gastric Bye- pass who is currently being evaluated for liver transplant if she remains consistently abstinent from alcohol. She is admitted directly by her PCP Dr. Frost after being evaluated in her office for SOB, orthopnea, cough, abdominal pain associated with distention, lightheadedness and generalized weakness although has been afebrile. Patient was evaluated during her admission in Jul 2016 and had negative HIDA scan, CTA negative for PE and she had Normal Echocardiogram. Currently she complains of worsening SOB since last week associated with non productive cough and orthopnea, increases with exertion. She is c/o abdominal pain which is diffuse but predominantly in RUQ, increased abdominal distention, has intermittent cramps, non radiating, no aggravating/ relieving factors. Has been on Levaquin as outpatient. Denies any fever, chills, chest pain, change in weight, appetite, change in bowel habits but admits to having nausea without vomiting and increased leg swelling. HR has been running high in 110- 120. Currently no labs/imaging studies available. Physical Exam (per Admitting): General Appearance: WD/WN, + mild distress Head: normocephalic, atraumatic Eyes: normal inspection, PERRL, EOMI, + abnormal sclerae exam (Has Icterus) ENT: normal ENT inspection, hearing grossly normal, TMs normal, pharynx normal Neck: supple, no adenopathy, thyroid normal, no JVD, no carotid bruits, trachea midline Respiratory/Chest: chest non-tender, normal breath sounds, + pertinent finding (Decreased breath sounds at bases B/L.) Cardiovascular: regular rate, rhythm, no gallop, no JVD, normal peripheral pulses Abdomen/GI: normal bowel sounds, + tenderness (Some pain/discomfort on deep palpation), + distended Back: normal inspection, no CVA tenderness, no muscle spasm, normal range of motion Extremities/Musculoskelatal: normal inspection, no calf tenderness, normal capillary refill, normal range of motion, + pedal edema Neurologic/Psych: alert, normal mood/affect, normal reflexes, oriented x 3 Skin: normal color, warm/dry, no rash Lymphatic: no adenopathy Hospital Course Patient is a 36 y/o female with JACOBO cirrhosis, now with possible alcoholic hepatitis. Possible alcoholic hepatitis - GI was consulted - patient was started on methylprednisolone - plan to continue for one month and then taper JACOBO cirrhosis - GI was consulted - continued Lasix and Spironolactone - continued magnesium and potassium supplementation - received vitamin K Thrush - patient reports not tolerating Nystatin - started on a 2 week course of fluconazole Leukocytosis - improved without intervention - CXR unchanged from previous; no clinical suspicion for pneumonia - no indication for paracentesis at this time (small to moderate ascites is unchanged and patient's abdominal symptoms are unchanged) - urinalysis with bland sediment and squamous cells Patient deemed stable for discharge with Family Medicine and GI follow up. PE on discharge: General- awake; alert; NAD Eyes- EOMI; no scleral icterus Neck- no stridor; trachea midline Lungs- CTA bilaterally; no wheezes/crackles Heart- RRR; no m/r/g Abdomen- soft; mildly diffusely tender; nBS; no guarding Back- no gross abnormalities Extremities- trace edema; no deformity Neuro- no gross focal deficits Skin- no appreciable rash or bruise . Total time spent on discharge = This includes examination of the patient, discharge planning, medication reconciliation, and communication with other providers. Discharge Instructions Discharge Instructions Admission Reason for Admission: Elevated white blood cell count Discharge Discharge Diagnosis / Problem: JACOBO cirrhosis Discharge Goals Goal(s): Improve function Activity Recommendations Activity Limitations: resume your previous activity . Instructions / Follow-Up Instructions / Follow-Up Please follow up with Family Medicine Dr. Frost on August 17 at 10:50am. You are currently scheduled to follow up with Gastroenterology Ivory Alberto on September 01 at 3:00pm. You will be contacted by the GI office with any appointment changes. Ivory will instruct you on a taper for the methylprednisolone (steroid). Current Hospital Diet Patient's current hospital diet: Low Sodium Diet (2gm Na) Discharge Diet Recommended Diet: Low Sodium Diet (2gm Na) Fluid Restriction: 1800 ml (7 cups) Pending Studies Studies pending at discharge: no Medical Emergencies . Who to Call and When: Medical Emergencies: If at any time you feel your situation is an emergency, please call 911 immediately. . Non-Emergent Contact Non-Emergency issues call your: Primary Care Provider, Dining Service Worker . . "Provider Documentation" section prepared by Paula Estrada. VTE Core Measure Inpt VTE Proph given/why not?: SCD's Additional Copies To Roxie Frost M.D. Vachon, Leonie S., CRNP
[2016-09-30] MEDS ORDERED: GABA-112 PO (09:34)
[2016-09-30] MEDS ORDERED: CYCL5TAB PO (09:34)
[2016-10-06] MEDS ORDERED: SPIR100T PO (10:53)
[2016-10-06] MEDS ORDERED: FRS/40 PO (10:53)
[2016-10-06] MEDS ORDERED: FURO-85 PO (10:53)
[2016-11-02] MEDS ORDERED: RIFA550T2 PO (09:10)
[2016-11-02] MEDS ORDERED: POTA10TA PO (09:10)
== END 2016-08-12 15:42 | disposition home or self-care (01) | DRG 433 ==
LOC: C.MS4W 15:57
PROVIDERS: ADMIT Emergency Medicine; ATTEND Internal Medicine
DX: K70.11 Alcoholic hepatitis with ascites (principal); B37.0 Candidal stomatitis; K75.81 Nonalcoholic steatohepatitis (NASH); K74.69 Other cirrhosis of liver; D72.829 Elevated white blood cell count, unspecified; E86.9 Volume depletion, unspecified; R00.0 Tachycardia, unspecified; R06.02 Shortness of breath; R05 Cough; D64.9 Anemia, unspecified; E66.9 Obesity, unspecified; Z68.29 Body mass index [BMI] 29.0-29.9, adult; Z98.84 Bariatric surgery status; Z76.82 Awaiting organ transplant status; Z91.11 Patient's noncompliance with dietary regimen; Z79.891 Long term (current) use of opiate analgesic; Z79.899 Other long term (current) drug therapy

== ENCOUNTER → 2016-10-01 | Outpatient (CLI) | payer BC ==
[~2016-10-01] MED LIST changes: +ALBINS/ INH; +AMIT10TA6 PO; +ASCO10003 PO; +ATV5X PO; +CYCL5TAB PO; +DFL100 PO; +DICY20TA10 PO; +FRS/40 PO; +FURO-85 PO; +GABA-112 PO; +HYDR-389 PO; +LACT10SO17 PO; +MAGN400T6 PO; +MELA1TAB5 PO; +OMEP40CA41 PO; +ONDA4TAB46 PO; +OXYC-57 PO; +POTA10CA28 PO; +POTA10TA PO; +RIFA550T2 PO; +SPIR100T PO; +ZINC220T PO
--- NOTE | 2016-10-01 15:07 | DIAGNOSTIC IMAGING REPORT ---
ULTRASOUND VENOUS DOPPLER LWR EXT BILA CLINICAL HISTORY: Bilateral lower extremity edema COMPARISON STUDY: 07/23/2016 FINDINGS: Real-time and color flow Doppler imaging were performed. Flow was seen within the femoral, popliteal and calf veins with no intraluminal thrombus demonstrated. The saphenous vein is patent. IMPRESSION: No evidence of lower extremity DVT Electronically signed by: Elliott Alfred M.D. 10/01/2016 3:06 PM Dictated Date/Time: 10/01/2016 3:05 PM
== END | disposition home or self-care (01) ==
LOC: C.ULTR 14:11
PROVIDERS: ATTEND Nurse Practitioner Family
DX: R60.0 Localized edema (principal)

== ENCOUNTER 2016-10-06 13:55 | Emergency (ER) | payer BC ==
[~2016-10-06] VITALS: Ht 170.2 cm; Wt 82.8 kg
[~2016-10-06 13:55] MED LIST changes: -AMIT10TA6 PO; -ASCO10003 PO; -ATV5X PO; -DICY20TA10 PO; -HYDR-389 PO; -LACT10SO17 PO; -MELA1TAB5 PO; -OMEP40CA41 PO; -OXYC-57 PO; -POTA10TA PO; -PRVHFAIN INH; -RIFA550T2 PO; -ZINC220T PO
[2016-10-06 14:01] VITALS: TEMP 36.9; Ht 170.2 cm; Wt 82.8 kg
--- NOTE | 2016-10-06 14:34 | EMERGENCY ROOM VISIT NOTE ---
History First contact with patient: 14:05 Chief Complaint: ILLNESS Stated Complaint: LW POTASSIUM,SWELLING-FEETLEGSSTOMACH FLUID-LUNGS History of Present Illness The patient is a 36 year old female who presents to the Emergency Room with complaints of swelling and shortness of breath. The patient has a history of JACOBO and liver failure. She has cirrhosis and is on a transplant list. The patient states that she has had increased swelling to her feet, ankles, abdomen and has developed a cough and shortness of breath since the weekend. The patient saw her GI doctor on Tuesday and had a chest x-ray and laboratory studies. She states she was told her potassium is low and there is fluid on her lungs. The patient was encouraged to come to the emergency department. The patient also has a history of anemia. The patient recently had a blood transfusion and today had an iron transfusion. She denies any fevers. She denies any pain in her chest. She denies any nausea, vomiting or diarrhea. She has not had any significant change in mental status. Review of Systems A 10 system review of systems was completed with positives and pertinent negatives listed in the HPI. Past Medical/Surgical History Medical Problems: (1) Chronic anemia (2) Nonalcoholic steatohepatitis (JACOBO) Surgical Problems: (1) S/P gastric bypass Family History Cancer Diabetes mellitus Social History Smoking Status: Never Smoker Alcohol Use: occasionally Drug Use: none Marital Status: Housing Status: lives with family Occupation Status: employed Current/Historical Medications Scheduled Dicyclomine Hcl (Dicyclomine Hcl), 20 MG PO TID Furosemide (Lasix), 40 MG PO QAM Furosemide (Lasix), 20 MG PO BID Gabapentin (Neurontin), 100 MG PO TID Magnesium Oxide (Mag-Ox), 400 MG PO QAM Melatonin (Kp Melatonin), 3 MG PO HS Omeprazole (Prilosec), 40 MG PO BID Pediatric Multiple Vitamin W/ (Flintstones Gummies), 2 TABS PO DAILY Potassium Chloride (Micro-K Ext Rel), 20 MEQ PO BID Spironolactone (Aldactone), 100 MG PO BID Scheduled PRN Albuterol (Ventolin Hfa), 2 PUFFS INH Q4 PRN for Shortness of Breath Albuterol Sulf (Proventil 0.083% 2.5MG/3ML), 2.5 MG INH QID PRN for Shortness of Breath Cyclobenzaprine Hcl (Flexeril), 1 TAB PO HS PRN for Muscle Spasms Lorazepam (Lorazepam), 0.5 MG PO HS PRN for Sleep Ondansetron Hcl (Zofran), 4 MG PO for Nausea Tramadol (Ultram), 50 MG PO Q8H PRN for Pain Allergies Coded Allergies: Dexmethylphenidate (Verified Allergy, Severe, CANNOT BREATHE, 10/06/16) Shrimp (Verified Allergy, Mild, HIVES, 10/06/16) Latex1 -Allergic Contact Dermititis (Verified Allergy, Unknown, BURNING SENSATION, RASH, RAISED WELTS, 10/06/16) Ibuprofen (Verified Adverse Reaction, Intermediate, "NOT ALLOWED" DUE TO H /O GASTRIC BYPASS, 10/06/16) Physical Exam Vital Signs Date Time Temp Pulse Resp B/P Pulse Ox O2 Delivery O2 Flow Rate FiO2 10/06/16 20:40 105 102/58 95 10/06/16 18:00 72 20 106/60 99 Room Air 10/06/16 17:02 109 20 103/63 95 Room Air 10/06/16 15:08 105 20 112/73 93 Room Air 10/06/16 14:01 36.9 118 20 104/65 97 Room Air Physical Exam VITALS: Vitals are noted on the nurse's note and reviewed by myself. Vital signs stable. The patient is afebrile. She is not hypotensive. GENERAL: This is a 36-year-old female, in no acute distress, nondiaphoretic, well-developed well-nourished. SKIN: The patient has mild jaundice. She does have edema to the bilateral lower extremities that extends proximally to the knees. There is no tenting of the skin. Capillary reflex less than 2 seconds. HEAD: Normocephalic atraumatic. EARS: External auditory canals clear, tympanic membranes pearly brooke without erythema or effusion bilaterally. EYES: Pupils equal round and reactive to light and accommodation. Conjunctivae without injection, sclerae without icterus. Extraocular movements intact. NOSE: Patent, turbinates without inflammation or discharge. MOUTH: Mucous membranes moist. Tonsils are not enlarged. Pharynx without erythema or exudate. Uvula midline. Airway patent. Tongue does not deviate. NECK: Supple without nuchal rigidity. No lymphadenopathy. No thyromegaly. Cervical spine is nontender. No JVD. HEART: Regular rate and rhythm without murmurs gallops or rubs. LUNGS: Clear to auscultation bilaterally without wheezes, rales or rhonchi. No retractions or accessory muscle use. ABDOMEN: Positive bowel sounds x 4. Soft, nontender, without masses or organomegaly. MUSCULOSKELETAL: No muscle atrophy, erythema, or edema noted. Full range of motion in all extremities. Normal gait. Strength 5/5 throughout. NEURO: Patient was alert and oriented to person place and time. No focal neurological deficits. Medical Decision & Procedures ER Provider Diagnostic Interpretation: [~ rep ct add3]] CT ANGIOGRAM OF THE CHEST CLINICAL HISTORY: Atypical chest pain. Dyspnea. COMPARISON STUDY: Chest x-ray dated 10/06/2016. Chest CT dated 07/20/2016. TECHNIQUE: Following the IV administration of 86 cc of Optiray 320, CT angiogram of the chest was performed from the upper abdomen to the thoracic inlet utilizing the pulmonary embolus protocol. Images are reviewed in the axial, sagittal, and coronal planes. 3-D MIPS images are created and assessed. IV contrast was administered without complication. CT DOSE: 268.52 mGy.cm FINDINGS: Thyroid: Imaged portions of the thyroid gland are normal in size and attenuation. Thoracic aorta: The thoracic aorta is normal in caliber and demonstrates standard 3-vessel arch anatomy. No dissection is seen. Pulmonary vasculature: The pulmonary trunk is top normal in caliber. There are no filling defects identified in main, lobar, or proximal segmental pulmonary branches to suggest pulmonary embolus. Evaluation of the peripheral vessels is degraded by motion artifact. Heart: The heart is enlarged and without pericardial effusion. Lungs and pleural spaces: Evaluation of the lung parenchyma is degraded by motion artifact. Mild emphysema is noted. Nonspecific groundglass opacities are seen within the upper lobes. The trachea and central airways are clear. There are small left and trace right pleural effusions with dense bibasilar consolidation. Mediastinum: There is no mediastinal lymphadenopathy. Casie: Clear. Axillae: There is no axillary lymphadenopathy. Upper abdomen: There is a small volume of perihepatic and perisplenic ascites. The spleen is enlarged, measuring 17 cm in length. The liver appears steatotic. Mild nodularity of the surface contour suggests changes of cirrhosis. Postoperative change is identified in the stomach. There is a small hiatal hernia. Skeletal structures: The skeletal structures are osteopenic. No lytic or blastic bony lesions are seen. IMPRESSION: 1. There is no evidence of pulmonary embolus in the main, lobar, or proximal segmental pulmonary arteries. 2. Cardiomegaly and mild emphysema. 3. Small left and trace right pleural effusions with dense bibasilar consolidation. This likely represents atelectasis. Pneumonia is not excluded. 4. Subtle patchy groundglass opacities are seen in the upper lobes. This could represent a component of interstitial edema or an infectious/inflammatory pneumonitis. Again, clinical correlation will be required. 5. Findings suggest cirrhosis. Marked splenomegaly and a small volume of abdominal ascites indicate portal hypertension. 6. Additional findings as above. CHEST ONE VIEW PORTABLE CLINICAL HISTORY: cough, sob dyspnea COMPARISON STUDY: 08/10/2016 FINDINGS: Chronic bibasilar segmental atelectatic change. Trace pleural fluid left base. Study is unchanged radiographically from the prior exam. IMPRESSION: Chronic bibasilar segmental atelectatic change. Trace pleural fluid left base. Study is similar as compared to the prior study 08/10/2016 Laboratory Results 10/06/16 14:45 Red Blood Count 3.12, Mean Corpuscular Volume 91.0, Mean Corpuscular Hemoglobin 28.8, Mean Corpuscular Hemoglobin Concent 31.7, Mean Platelet Volume 11.1, Neutrophils (%) (Auto) 70.5, Lymphocytes (%) (Auto) 21.5, Monocytes (%) (Auto) 6.5, Eosinophils (%) (Auto) 0.9, Basophils (%) (Auto) 0.3, Neutrophils # (Auto) 5.42, Lymphocytes # (Auto) 1.65, Monocytes # (Auto) 0.50, Eosinophils # (Auto) 0.07, Basophils # (Auto) 0.02 10/06/16 14:45 Test 10/06/16 14:45 10/06/16 14:58 10/06/16 17:25 White Blood Count 7.68 K/uL (4.8-10.8) Red Blood Count 3.12 M/uL (4.2-5.4) Hemoglobin 9.0 g/dL (12.0-16.0) Hematocrit 28.4 % (37-47) Mean Corpuscular Volume 91.0 fL (80-100) Mean Corpuscular Hemoglobin 28.8 pg (25-34) Mean Corpuscular Hemoglobin Concent 31.7 g/dl (32-36) Platelet Count 191 K/uL (130-400) Mean Platelet Volume 11.1 fL (7.4-10.4) Neutrophils (%) (Auto) 70.5 % Lymphocytes (%) (Auto) 21.5 % Monocytes (%) (Auto) 6.5 % Eosinophils (%) (Auto) 0.9 % Basophils (%) (Auto) 0.3 % Neutrophils # (Auto) 5.42 K/uL (1.4-6.5) Lymphocytes # (Auto) 1.65 K/uL (1.2-3.4) Monocytes # (Auto) 0.50 K/uL (0.11-0.59) Eosinophils # (Auto) 0.07 K/uL (0-0.5) Basophils # (Auto) 0.02 K/uL (0-0.2) RDW Standard Deviation 50.1 fL (36.4-46.3) RDW Coefficient of Variation 14.8 % (11.5-14.5) Immature Granulocyte % (Auto) 0.3 % Immature Granulocyte # (Auto) 0.02 K/uL (0.00-0.02) Prothrombin Time 16.1 SECONDS (9.0-12.0) Prothromb Time International Ratio 1.5 (0.9-1.1) Activated Partial Thromboplast Time 38.2 SECONDS (21.0-31.0) Partial Thromboplastin Ratio 1.5 Anion Gap 10.0 mmol/L (3-11) Est Creatinine Clear Calc Drug Dose 141.5 ml/min Estimated GFR () 136.4 Estimated GFR (Non- 117.6 BUN/Creatinine Ratio 10.3 (10-20) Calcium Level 7.6 mg/dl (8.5-10.1) Magnesium Level 1.9 mg/dl (1.8-2.4) Total Bilirubin 2.2 mg/dl (0.2-1) Aspartate Amino Transf (AST/SGOT) 27 U/L (15-37) Alanine Aminotransferase (ALT/SGPT) 20 U/L (12-78) Alkaline Phosphatase 107 U/L (45-117) Total Protein 5.8 gm/dl (6.4-8.2) Albumin 2.1 gm/dl (3.4-5.0) Globulin 3.7 gm/dl (2.5-4.0) Albumin/Globulin Ratio 0.6 (0.9-2) Lipase 58 U/L (73-393) Ammonia 54.0 umol/L (11-32) Urine Color YELLOW Urine Appearance CLEAR (CLEAR) Urine pH 6.0 (4.5-7.5) Urine Specific Silt 1.019 (1.000-1.030) Urine Protein NEG (NEG) Urine Glucose (UA) NEG (NEG) Urine Ketones NEG (NEG) Urine Occult Blood NEG (NEG) Urine Nitrite NEG (NEG) Urine Bilirubin NEG (NEG) Urine Urobilinogen NEG (NEG) Urine Leukocyte Esterase MODERATE (NEG) Urine WBC (Auto) 10-30 /hpf (0-5) Urine RBC (Auto) 0-4 /hpf (0-4) Urine Hyaline Casts (Auto) 1-5 /lpf (0-5) Urine Epithelial Cells (Auto) >30 /lpf (0-5) Urine Bacteria (Auto) NEG (NEG) Medications Administered Medications (Trade) Dose Ordered Sig/Jakub Route Start Time Stop Time Status Last Admin Dose Admin Furosemide/Syringe (Lasix Inj/ Syringe) 2 ml @ 4 mls/min ONE STAT IV 10/06/16 16:23 10/06/16 16:24 DC 10/06/16 17:02 4 MLS/MIN Furosemide (Lasix Inj) 20 mg NOW STAT IV 10/06/16 19:59 10/06/16 20:00 DC 10/06/16 20:29 20 MG Procedure The patient was monitored on a classroom monitor. They maintained a normal sinus rhythm without ectopy. ECG Indication: SOB/dyspnea Rate (beats per minute): 105 Rhythm: sinus tachycardia Findings: no acute ischemic change Change: T-wave inversion has resolved ED Course The patient does not have a fever or leukocytosis. She has a stable anemia with hemoglobin 9.0. She does not have any significant electrolyte abnormality. Ammonia is elevated at 54. Lipase was not elevated. Total bilirubin was 2.2 and is actually improved compared to previous. INR was 1.5 and this is improved compared to previous. Urinalysis suggests urinary tract infection versus contamination. The patient is completely asymptomatic in regards to urinary tract infection. A culture is pending. The patient has had increasing peripheral edema. She is not tachycardic, tachypneic or hypoxic. She is able to speak in full sentences. A chest x-ray is similar in appearance compared to previous. A CT of the chest was negative for pulmonary embolus. There is questionable possible pneumonitis. Again, the patient has no fever or leukocytosis to suggest pneumonia. The patient has had similar symptoms in the past. The patient states that she had seen gastroenterology earlier in the week. She states that they have been trying to get her to come to the emergency department for the last 4 weeks. I did speak with on-call [facility] gastroenterology. Ivory is not available today and the patient states she usually sees her. Gastroenterology suggests keeping the patient in the hospital for evaluation and consultation tomorrow. I discussed the case with case management and they do not feel that the patient meets admission criteria. I discussed the case with the [facility] hospitalist service and they agreed to evaluate the patient. The patient was given 20 mg IV Lasix. The patient did not want to stay in the hospital she did not want to miss her son's birthday tomorrow. She was tearful with the RN about this. The patient is nontoxic in appearance and does not seem to be in any distress at this time. After discussion with the hospitalist service, the patient will be given another 20 mg IV Lasix and discharged home. They state they will ensure that the patient has follow-up either with gastroenterology or her family doctor tomorrow. The patient should return to the emergency Department with any worsening symptoms. The case was discussed with Dr. Marie who agrees with the assessment and treatment plan Medical Decision DIFFERENTIAL DIAGNOSIS: Aortic dissection, myocarditis, pericarditis, cervical disc disease, costochondritis, herpes zoster, rib fracture, pleuritis, pneumonia , pulmonary embolus, tension pneumothorax, anxiety disorder, somatoform disorder , choledocholithiasis, status, esophagitis, esophageal spasm, esophageal reflux , esophageal rupture, pancreatitis, peptic ulcer disease, cardiac ischemia, ST elevation GA, acute coronary syndrome, arrhythmia, coronary artery vasospasm. vavular heart disease, coronary artery disease, among others. Impression Primary Impression: Peripheral edema Additional Impression: Liver failure Departure Information Dispostion Home / Self-Care Condition GOOD Referrals Roxie Frost M.D. (PCP) Ivory Alberto CRNP Patient Instructions My [facility] Additional Instructions Follow up with your doctor and GI tomorrow Continue your Lasix Return with any worsening symptoms Problem Qualifiers
--- NOTE | 2016-10-06 14:42 | DIAGNOSTIC IMAGING REPORT ---
CHEST ONE VIEW PORTABLE CLINICAL HISTORY: cough, sob dyspnea COMPARISON STUDY: 08/10/2016 FINDINGS: Chronic bibasilar segmental atelectatic change. Trace pleural fluid left base. Study is unchanged radiographically from the prior exam. IMPRESSION: Chronic bibasilar segmental atelectatic change. Trace pleural fluid left base. Study is similar as compared to the prior study 08/10/2016 Electronically signed by: Juanpablo Swift M.D. 10/06/2016 2:41 PM Dictated Date/Time: 10/06/2016 2:40 PM
[2016-10-06] MEDS ORDERED: PRVHFAIN INH (15:08)
[2016-10-06] MEDS ORDERED: OMEP40CA41 PO (15:08)
[2016-10-06] MEDS ORDERED: ATV5X PO (15:08)
[2016-10-06 15:13] LABS: INR 1.5 (0.9-1.1); PARTIAL THROMBOPLASTIN RATIO 1.5; PROTHROMBIN TIME (PATIENT) 16.1 SECONDS (9.0-12.0)
[2016-10-06] MEDS ORDERED: DICY20TA10 PO (15:19)
[2016-10-06 15:20] LABS: BUN/CREATININE RATIO 10.3 (10-20); CALCIUM 7.6 mg/dl (8.5-10.1); CREATININE 0.62 mg/dl (0.60-1.20); MAGNESIUM 1.9 mg/dl (1.8-2.4); POTASSIUM 3.4 mmol/L (3.5-5.1)
[2016-10-06 15:26] LABS: ALB/GLOB RATIO 0.6 (0.9-2)
[2016-10-06 15:50] LABS: BASO % 0.3 %; BASO ABS # 0.02 K/uL (0-0.2); COMPLETE YES; EOS % 0.9 %; HEMATOCRIT 28.4 % (37-47); IG% 0.3 %; LYMPH % 21.5 %; LYMPH ABS # 1.65 K/uL (1.2-3.4); MEAN CORPUSCULAR HEMOGLOBIN 28.8 pg (25-34); MEAN CORPUSCULAR HGB CONC 31.7 g/dl (32-36); MEAN PLATELET VOLUME 11.1 fL (7.4-10.4); MONO % 6.5 %; NEUT % 70.5 %; PLATELET COUNT 191 K/uL (130-400); RED BLOOD COUNT 3.12 M/uL (4.2-5.4); WHITE BLOOD COUNT 7.68 K/uL (4.8-10.8)
[2016-10-06] MEDS ORDERED: FUROSEMIDE INJ 20 MG in SYRINGE 0 ML IV STA (16:23)
[2016-10-06] MEDS ORDERED: OPTIRAY 320 IV PRN (16:45)
--- NOTE | 2016-10-06 17:22 | DIAGNOSTIC IMAGING REPORT ---
CT ANGIOGRAM OF THE CHEST CLINICAL HISTORY: Atypical chest pain. Dyspnea. COMPARISON STUDY: Chest x-ray dated 10/06/2016. Chest CT dated 07/20/2016. TECHNIQUE: Following the IV administration of 86 cc of Optiray 320, CT angiogram of the chest was performed from the upper abdomen to the thoracic inlet utilizing the pulmonary embolus protocol. Images are reviewed in the axial, sagittal, and coronal planes. 3-D MIPS images are created and assessed. IV contrast was administered without complication. CT DOSE: 268.52 mGy.cm FINDINGS: Thyroid: Imaged portions of the thyroid gland are normal in size and attenuation. Thoracic aorta: The thoracic aorta is normal in caliber and demonstrates standard 3-vessel arch anatomy. No dissection is seen. Pulmonary vasculature: The pulmonary trunk is top normal in caliber. There are no filling defects identified in main, lobar, or proximal segmental pulmonary branches to suggest pulmonary embolus. Evaluation of the peripheral vessels is degraded by motion artifact. Heart: The heart is enlarged and without pericardial effusion. Lungs and pleural spaces: Evaluation of the lung parenchyma is degraded by motion artifact. Mild emphysema is noted. Nonspecific groundglass opacities are seen within the upper lobes. The trachea and central airways are clear. There are small left and trace right pleural effusions with dense bibasilar consolidation. Mediastinum: There is no mediastinal lymphadenopathy. Casie: Clear. Axillae: There is no axillary lymphadenopathy. Upper abdomen: There is a small volume of perihepatic and perisplenic ascites. The spleen is enlarged, measuring 17 cm in length. The liver appears steatotic. Mild nodularity of the surface contour suggests changes of cirrhosis. Postoperative change is identified in the stomach. There is a small hiatal hernia. Skeletal structures: The skeletal structures are osteopenic. No lytic or blastic bony lesions are seen. IMPRESSION: 1. There is no evidence of pulmonary embolus in the main, lobar, or proximal segmental pulmonary arteries. 2. Cardiomegaly and mild emphysema. 3. Small left and trace right pleural effusions with dense bibasilar consolidation. This likely represents atelectasis. Pneumonia is not excluded. 4. Subtle patchy groundglass opacities are seen in the upper lobes. This could represent a component of interstitial edema or an infectious/inflammatory pneumonitis. Again, clinical correlation will be required. 5. Findings suggest cirrhosis. Marked splenomegaly and a small volume of abdominal ascites indicate portal hypertension. 6. Additional findings as above. Electronically signed by: Oleg Berry M.D. 10/06/2016 5:21 PM Dictated Date/Time: 10/06/2016 5:14 PM
[2016-10-06] MEDS ORDERED: MELA1TAB5 PO (18:00)
[2016-10-06 18:10] LABS: URINE APPEARANCE CLEAR (CLEAR); URINE BILIRUBIN NEG (NEG); URINE COLOR YELLOW; URINE EPITHELIAL CELL AUTO >30 /lpf (0-5); URINE NITRITE NEG (NEG); URINE SPECIFIC GRAVITY 1.019 (1.000-1.030); UROBILINOGEN NEG (NEG); ZZUR CULT IF INDIC CLEAN CATCH YES
[2016-10-06 18:16] LABS: MANUAL MICROSCOPIC REQUIRED? NO; REVIEW REQ? NO
--- NOTE | 2016-10-06 19:20 | History and Physical ---
History & Physical Date & Time of Service: Oct 06, 2016 at 18:42 Chief Complaint: Lw Potassium,Swelling-Feetlegsstomach Fluid-Lungs Primary Care Physician: Roxie Frost M.D. History of Present Illness Source: patient This is a 36 y/o female with PMHx of JACOBO cirrhosis and chronic anemia s/p gastric bypass who is currently being evaluated for liver transplant if she remains abstinent from alcohol. Pt presents to the ED c/o worsening LE edema x 1 week. Sxs are assoc with SOB with exertion and dry cough. She was seen by [employer] with gastroenterology one week ago and had CXR and laboratory studies. She was told her potassium is low and there is a small amount of fluid in her lungs. Yesterday, GI increased her Lasix from 40mg daily to 40mg BID and her Spironolactone was increased from 150mg daily to 100mg BID. Today, she came to the ED because her swelling wasn't improving. The patient also has a history of chronic anemia and requires periodic blood transfusions. The patient had a blood transfusion last week and received an iron transfusion today. Pt denies fever/chills, chest pain, palpitations, abd pain, N/V, bowel or bladder issues, calf pain, lightheadedness/dizziness. In the ED, pt is mildly tachycardic. HgB 9.0. K+ 3.4. calcium 7.6. total bili 2.2. lipase 58. ammonia 54. CXR + chronic bibasilar atelectasis unchanged from prior study 08/10/16. CTA chest negative for PE. Past Medical/Surgical History Medical Problems: (1) Chronic anemia Status: Chronic (2) Nonalcoholic steatohepatitis (JACOBO) Status: Chronic Surgical Problems: (1) S/P gastric bypass Status: Resolved Family History Cancer Diabetes mellitus Social History Smoking Status: Never Smoker Alcohol Use: none Drug Use: none Marital Status: Housing status: lives with family Occupational Status: unemployed Immunizations History of Influenza Vaccine: Yes Influenza Vaccine Date: Jul 12, 2016 History of Tetanus Vaccine?: Yes Tetanus Immunization Date: Oct 08, 2009 History of Pneumococcal: Yes Pneumococcal Date: Jul 12, 2016 History of Hepatitis B Vaccine: Yes Hepatitis Immunization Date: Sep 01, 2016 Multi-Drug Resistant Organisms History of MDRO: No Allergies Coded Allergies: Dexmethylphenidate (Verified Allergy, Severe, CANNOT BREATHE, 10/06/16) Shrimp (Verified Allergy, Mild, HIVES, 10/06/16) Latex1 -Allergic Contact Dermititis (Verified Allergy, Unknown, BURNING SENSATION, RASH, RAISED WELTS, 10/06/16) Ibuprofen (Verified Adverse Reaction, Intermediate, "NOT ALLOWED" DUE TO H /O GASTRIC BYPASS, 10/06/16) Home Medications Scheduled Dicyclomine Hcl (Dicyclomine Hcl), 20 MG PO TID Furosemide (Lasix), 40 MG PO QAM Furosemide (Lasix), 20 MG PO BID Gabapentin (Neurontin), 100 MG PO TID Magnesium Oxide (Mag-Ox), 400 MG PO QAM Melatonin (Kp Melatonin), 3 MG PO HS Omeprazole (Prilosec), 40 MG PO BID Pediatric Multiple Vitamin W/ (Flintstones Gummies), 2 TABS PO DAILY Potassium Chloride (Micro-K Ext Rel), 20 MEQ PO BID Spironolactone (Aldactone), 100 MG PO BID Scheduled PRN Albuterol (Ventolin Hfa), 2 PUFFS INH Q4 PRN for Shortness of Breath Albuterol Sulf (Proventil 0.083% 2.5MG/3ML), 2.5 MG INH QID PRN for Shortness of Breath Cyclobenzaprine Hcl (Flexeril), 1 TAB PO HS PRN for Muscle Spasms Lorazepam (Lorazepam), 0.5 MG PO HS PRN for Sleep Ondansetron Hcl (Zofran), 4 MG PO for Nausea Tramadol (Ultram), 50 MG PO Q8H PRN for Pain Review of Systems Constitutional: + fatigue, No chills, No fever, No sweats, No weakness Eyes: No worsening of vision ENT: No hearing loss Respiratory: + cough, + dyspnea on exertion, + shortness of breath, No dyspnea at rest, No sputum, No wheezing Cardiovascular: + edema, No chest pain, No claudication Abdomen: No constipation, No diarrhea, No nausea, No pain, No vomiting Musculoskeletal: + swelling, No calf pain Genitourinary - Female: No dysuria Neurologic: No weakness Psychiatric: No depression symptoms Endocrine: + fatigue Hematologic / Lymphatic: No abnormal bleeding/bruising Integumentary: No new/changing skin lesions Physical Exam Vital Signs Date Time Temp Pulse Resp B/P Pulse Ox O2 Delivery O2 Flow Rate FiO2 10/06/16 17:02 109 20 103/63 95 Room Air 10/06/16 15:08 105 20 112/73 93 Room Air 10/06/16 14:01 36.9 118 20 104/65 97 Room Air General Appearance: WD/WN, no apparent distress, + pertinent finding (Pt is laying comfortably in bed) Head: normocephalic, atraumatic Eyes: normal inspection ENT: hearing grossly normal Neck: supple Respiratory/Chest: chest non-tender, lungs clear, normal breath sounds, no respiratory distress Cardiovascular: no murmur, + tachycardia Abdomen/GI: normal bowel sounds, non tender, soft, + distended (mild distention but soft) Back: normal inspection Extremities/Musculoskelatal: + pertinent finding (3+ pitting edema to feet and ankles with 1+ edema extending into calf but not above knees bilaterally ) Neurologic/Psych: alert, normal mood/affect, oriented x 3 Skin: normal color, warm/dry Diagnostics Laboratory Results Results Past 24 Hours Test 10/06/16 14:45 10/06/16 14:58 10/06/16 17:25 Range/Units White Blood Count 7.68 4.8-10.8 K/uL Red Blood Count 3.12 4.2-5.4 M/uL Hemoglobin 9.0 12.0-16.0 g/dL Hematocrit 28.4 37-47 % Mean Corpuscular Volume 91.0 80-100 fL Mean Corpuscular Hemoglobin 28.8 25-34 pg Mean Corpuscular Hemoglobin Concent 31.7 32-36 g/dl Platelet Count 191 130-400 K/uL Mean Platelet Volume 11.1 7.4-10.4 fL Neutrophils (%) (Auto) 70.5 % Lymphocytes (%) (Auto) 21.5 % Monocytes (%) (Auto) 6.5 % Eosinophils (%) (Auto) 0.9 % Basophils (%) (Auto) 0.3 % Neutrophils # (Auto) 5.42 1.4-6.5 K/uL Lymphocytes # (Auto) 1.65 1.2-3.4 K/uL Monocytes # (Auto) 0.50 0.11-0.59 K/uL Eosinophils # (Auto) 0.07 0-0.5 K/uL Basophils # (Auto) 0.02 0-0.2 K/uL RDW Standard Deviation 50.1 36.4-46.3 fL RDW Coefficient of Variation 14.8 11.5-14.5 % Immature Granulocyte % (Auto) 0.3 % Immature Granulocyte # (Auto) 0.02 0.00-0.02 K/uL Prothrombin Time 16.1 9.0-12.0 SECONDS Prothromb Time International Ratio 1.5 0.9-1.1 Activated Partial Thromboplast Time 38.2 21.0-31.0 SECONDS Partial Thromboplastin Ratio 1.5 Sodium Level 136 136-145 mmol/L Potassium Level 3.4 3.5-5.1 mmol/L Chloride Level 102 98-107 mmol/L Carbon Dioxide Level 24 21-32 mmol/L Anion Gap 10.0 3-11 mmol/L Blood Urea Nitrogen 6 7-18 mg/dl Creatinine 0.62 0.60-1.20 mg/dl Est Creatinine Clear Calc Drug Dose 141.5 ml/min Estimated GFR () 136.4 Estimated GFR (Non- 117.6 BUN/Creatinine Ratio 10.3 10-20 Random Glucose 114 70-99 mg/dl Calcium Level 7.6 8.5-10.1 mg/dl Magnesium Level 1.9 1.8-2.4 mg/dl Total Bilirubin 2.2 0.2-1 mg/dl Aspartate Amino Transf (AST/SGOT) 27 15-37 U/L Alanine Aminotransferase (ALT/SGPT) 20 12-78 U/L Alkaline Phosphatase 107 45-117 U/L Total Protein 5.8 6.4-8.2 gm/dl Albumin 2.1 3.4-5.0 gm/dl Globulin 3.7 2.5-4.0 gm/dl Albumin/Globulin Ratio 0.6 0.9-2 Lipase 58 73-393 U/L Ammonia 54.0 11-32 umol/L Urine Color YELLOW Urine Appearance CLEAR CLEAR Urine pH 6.0 4.5-7.5 Urine Specific [place] 1.019 1.000-1.030 Urine Protein NEG NEG Urine Glucose (UA) NEG NEG Urine Ketones NEG NEG Urine Occult Blood NEG NEG Urine Nitrite NEG NEG Urine Bilirubin NEG NEG Urine Urobilinogen NEG NEG Urine Leukocyte Esterase MODERATE NEG Urine WBC (Auto) 10-30 0-5 /hpf Urine RBC (Auto) 0-4 0-4 /hpf Urine Hyaline Casts (Auto) 1-5 0-5 /lpf Urine Epithelial Cells (Auto) >30 0-5 /lpf Urine Bacteria (Auto) NEG NEG Microbiology Results 10/06/16 Urine Culture, Received Pending Diagnostic Radiology CHEST CTA IMPRESSION: 1. There is no evidence of pulmonary embolus in the main, lobar, or proximal segmental pulmonary arteries. 2. Cardiomegaly and mild emphysema. 3. Small left and trace right pleural effusions with dense bibasilar consolidation. This likely represents atelectasis. Pneumonia is not excluded. 4. Subtle patchy groundglass opacities are seen in the upper lobes. This could represent a component of interstitial edema or an infectious/inflammatory pneumonitis. Again, clinical correlation will be required. 5. Findings suggest cirrhosis. Marked splenomegaly and a small volume of abdominal ascites indicate portal hypertension. CXR IMPRESSION: Chronic bibasilar segmental atelectatic change. Trace pleural fluid left base. Study is similar as compared to the prior study 08/10/2016 EKG EKG: sinus tachycardia at [address] changes noted to anterior leads; when compared to EKG from 07/22/16, criteria for septal infarct is no longer present and T wave inversion is no longer present in lateral leads Impression Assessment and Plan 36 yo F with known cirrhosis who reports shortness of breath and increased fluid around her feet and ankles over the past several days. In response to these symptoms, her GI providers have appropriately increased her diuretics, but this just occurred one day ago and likely has not had time to take full effect. In the ER, she received two doses of Lasix 20mg IV and feels better enough to go home at this time. She was initially going to be brought in for observation and expedited diuresis efforts, however, she doesn't appear volume overloaded on exam. She is also very concerned about her dog who is locked up in a crate with no one at home, and her 7 yo son who is staying with a friend while her is out of town. She states it is her son's 7th birthday tomorrow, and she is in tears because she is concerned about being in the hospital on his birthday. Currently, she is mildly tachycardic, she has no tachypnea, work of breathing or accessory muscle use and is speaking in full sentences without any issues. Respiratory workup included a CT PE protocol which ruled out a PE, however, did discover bilateral ground glass opacities consistent with fluid overload or a possible inflammatory pneumonitis. She denies any fevers or chills but has had a mild dry cough in prior days. This imaging finding and symptom of cough may be further followed up as an outpatient. Additionally, regarding her pain in her feet, there is swelling present which is associated with the pain and after two doses of IV diuretics along with continuation of her increased PO diuretics, the hope is that this will go down in the next 24 to 48 hours and her pain will improve. I feel at this point it is safe to send her home with close followup with GI and her PCP as an outpatient later this week. The patient verbalized understanding that she needs follow-up on her CT scan findings discussed above. She agreed to return to the ER or seek immediate medical attention should her symptoms worsen. Original H&P interview was conducted by Nida Beth PA-C. Ariella Reeves DO Hospitalist
[2016-10-06] MEDS ORDERED: FUROSEMIDE 40 MG/4 ML VIAL IV STA (19:59)
[2016-10-06 20:40] VITALS: BP 102/58; PULSE 105; O2SAT 95
[2016-11-02] MEDS ORDERED: POTA10TA PO (09:10)
[2016-11-02] MEDS ORDERED: RIFA550T2 PO (09:10)
== END 2016-10-06 20:40 | disposition home or self-care (01) ==
LOC: C.EDB 13:58
DX: K72.90 Hepatic failure, unspecified without coma (principal); R60.0 Localized edema; K74.60 Unspecified cirrhosis of liver; Z98.84 Bariatric surgery status; Z83.3 Family history of diabetes mellitus; Z79.899 Other long term (current) drug therapy; D64.9 Anemia, unspecified

== ENCOUNTER → 2016-11-09 | Day surgery (SDC) | payer BC ==
[2016-11-02 09:10] VITALS: Ht 170.2 cm; Wt 85.5 kg
[~2016-11-09] VITALS: Ht 170.2 cm; Wt 85.5 kg
[~2016-11-09] MED LIST changes: -ALBUAER19 INH; +AMIT10TA6 PO; +ASCO10003 PO; +ATV5X PO; -BNT20 PO; -DFL100 PO; +DICY20TA10 PO; -FURO20TA PO; +HYDR-389 PO; +LACT10SO17 PO; +LIDOCAINE HCL 2% 2 ML VIAL (20MG/ML) ONE; +MELA1TAB5 PO; +MIDAZOLAM HCL 1 MG/ML 2ML VIAL ONE; -OMEP40CA36 PO; +OMEP40CA41 PO; +OXYC-57 PO; +PHENYLEPHRINE 100MCG/ML 5ML SYR ONE; -POTA10CA28 PO; +POTA10TA PO; +PROPOFOL IV EMULSION 10 MG/ML 20 ML VIAL IV ONE; +PRVHFAIN INH; +RIFA550T2 PO; +SODIUM CHLORIDE 0.9% 500ML 500 ML IV ONE; -SPRN100 PO; +ZINC220T PO
--- NOTE | 2016-11-09 10:40 | Endo History and Physical ---
History & Physical Date of Service: Nov 09, 2016. Chief Complaint: anemia Referring Physician: Dr. Frost History of Present Illness 36 yo presenting for evaluation of anemia-hx of gastric bypass. Past Medical History Fractures, Asthma, Anxiety, Reflux, Sleep Apnea, Liver Disease, Depression Past Surgical History Hx Cardiac Surgery: No Hx Internal Defibrillator: No Hx Pacemaker: No Hx Abdominal Surgery: Yes (GASTRIC BYPASS) Hx Post-Op Nausea and Vomiting: No Hx Cancer Surgery: No Hx Thoracic Surgery: No Hx Orthopedic: No Hx Urinary Tract Surgery: No Family History IBD Social History Smoking Status: Never Smoker Hx Substance Use: No Hx Alcohol Use: No Allergies Coded Allergies: Dexmethylphenidate (Verified Allergy, Severe, CANNOT BREATHE, 11/02/16) Shrimp (Verified Allergy, Mild, HIVES, 11/02/16) CAN HAVE CERTAIN TYPES OF SHRIMPS Latex1 -Allergic Contact Dermititis (Verified Allergy, Unknown, BURNING SENSATION, RASH, RAISED WELTS, 11/02/16) Ibuprofen (Verified Adverse Reaction, Intermediate, "NOT ALLOWED" DUE TO H /O GASTRIC BYPASS, 11/02/16) Current Medications Reported Home Medications Medications Dose Route/Sig Max Daily Dose Days Date Category Dose Instructions K-Tabs (Potassium Chloride) 10 Meq Tab 1 Tab PO TID 11/02/16 Reported Kp Melatonin (Melatonin) 3 Mg Tab 3 Mg PO HS 30 10/06/16 Reported Dicyclomine Hcl 20 Mg Tab 20 Mg PO TID 10/06/16 Reported Lorazepam 0.5 Mg Tab 0.5 Mg PO HS PRN 10/06/16 Reported Prilosec (Omeprazole) 40 Mg Cap 40 Mg PO BID 10/06/16 Reported Ventolin Hfa (Albuterol) 60 Puffs/5400 Mcg Aers 2 Puffs INH Q4 PRN 10/06/16 Reported Lasix (Furosemide) 20 Mg Tab 20 Mg PO BID 90 10/06/16 Reported AFTERNOON AND EVENING Aldactone (Spironolactone) 100 Mg Tab 2 Tab PO BID 10/06/16 Reported Lasix (Furosemide) 40 Mg Tab 40 Mg PO QAM 10/06/16 Reported Neurontin (Gabapentin) 100 Mg Cap 100 Mg PO TID 09/30/16 Reported Flexeril (Cyclobenzaprine Hcl) 5 Mg Tab 1 Tab PO HS PRN 30 09/30/16 Reported Proventil 0.083% 2.5MG/3ML (Albuterol Sulf) 2.5 Mg/3 Ml Nebu 2.5 Mg INH QID PRN 08/10/16 Reported Mag-Ox (Magnesium Oxide) 400 Mg Tab 400 Mg PO QAM 08/10/16 Reported Zofran (Ondansetron HCl) 4 Mg Tab 4 Mg PO PRN 08/10/16 Reported Ultram (Tramadol HCl) 50 Mg Tab 50 Mg PO Q8H PRN 07/25/16 Rx Sanchez Fullermies (Pediatric Multiple Vitamin W/) 1 Chw Chw 2 Tabs PO QAM 07/05/16 Reported Vital Signs Weight (Kilograms): 85.45 Height (Feet): 5 Height (Inches): 7 Date Time Temp Pulse Resp B/P Pulse Ox O2 Delivery O2 Flow Rate FiO2 11/09/16 10:24 37 71 20 101/55 94 Room Air Physical Exam General Appearance: WD/WN, no apparent distress Respiratory/Chest: Respiratory effort: no dyspnea Auscultation: breath sounds normal, CTA except as noted, no wheezing Cardiovascular: Apical Impulse: not displaced Heart Auscultation: RRR, normal S1, normal S2 Abdomen: Bowel Sounds: normal Inspection & Palpation: soft, non-distended Assessment and Plan 36 yo presenting for evaluation of anemia
--- NOTE | 2016-11-09 11:20 | GI REPORT ---
Procedure Date: 11/09/2016 10:46 AM Procedure: Upper GI endoscopy Indications: Iron deficiency anemia Medicines: General Anesthesia Complications: No immediate complications. Estimated blood loss: None. Estimated Blood Loss: Estimated blood loss: none. Procedure: Pre-Anesthesia Assessment: - Pre-Anesthesia Assessment: - Prior to the procedure, a History and Physical was performed, and patient medications, allergies and sensitivities were reviewed. The patient's tolerance of previous anesthesia was reviewed. Please see [employer] for complete details. - The risks and benefits of the procedure and the sedation options and risks were discussed with the patient. All questions were answered and informed consent was obtained. - Patient identification and proposed procedure were verified prior to the procedure by the physician and the nurse. The procedure was verified in the pre-procedure area in the procedure room. After obtaining informed consent, the endoscope was passed carefully and meticuously under direct vision and only advanced when the lumen was clearly identified, C02 insuflation was utilized throughout the entirity of the procedure. Throughout the procedure, the patient's blood pressure, pulse, and oxygen saturations were monitored continuously. After obtaining informed consent, the endoscope was passed under direct vision. Throughout the procedure, the patient's blood pressure, pulse, and oxygen saturations were monitored continuously. The scope was introduced through the mouth, and advanced to the second part of duodenum. The upper GI endoscopy was accomplished without difficulty. The patient tolerated the procedure well. Findings: The examined esophagus was normal. Evidence of a Renuka-en-Y gastrojejunostomy was found. The gastrojejunal anastomosis was characterized by healthy appearing mucosa. The examined jejunum was normal. Impression: - Normal esophagus. - Renuka-en-Y gastrojejunostomy with gastrojejunal anastomosis characterized by healthy appearing mucosa. - Normal examined jejunum. - No specimens collected. Recommendation: - Discharge patient to home (with escort). - Perform a colonoscopy today. Morgan Felix MD 11/09/2016 11:19:17 AM This report has been signed electronically. Note Initiated On: 11/09/2016 10:46 AM I attest to the content of the Intraoperative Record and orders documented therein, exceptions below
--- NOTE | 2016-11-09 11:23 | GI REPORT ---
Procedure Date: 11/09/2016 10:48 AM Procedure: Colonoscopy Indications: Iron deficiency anemia Medicines: General Anesthesia Complications: No immediate complications. Estimated blood loss: None. Estimated Blood Loss: Estimated blood loss: none. Procedure: Pre-Anesthesia Assessment: - Pre-Anesthesia Assessment: - Prior to the procedure, a History and Physical was performed, and patient medications, allergies and sensitivities were reviewed. The patient's tolerance of previous anesthesia was reviewed. Please see [employer] for complete details. - The risks and benefits of the procedure and the sedation options and risks were discussed with the patient. All questions were answered and informed consent was obtained. - Patient identification and proposed procedure were verified prior to the procedure by the physician and the nurse. The procedure was verified in the pre-procedure area in the procedure room. After obtaining informed consent, the endoscope was passed carefully and meticuously under direct vision and only advanced when the lumen was clearly identified, C02 insuflation was utilized throughout the entirity of the procedure. Throughout the procedure, the patient's blood pressure, pulse, and oxygen saturations were monitored continuously. After I obtained informed consent, the scope was passed under direct vision. Throughout the procedure, the patient's blood pressure, pulse, and oxygen saturations were monitored continuously. The scope was introduced through the anus and advanced to the terminal ileum, with identification of the appendiceal orifice and IC valve. The colonoscopy was performed without difficulty. The patient tolerated the procedure well. The quality of the bowel preparation was good. Findings: A 4 mm polyp was found in the ascending colon. The polyp was sessile. The polyp was removed with a cold snare. Resection and retrieval were complete. To prevent bleeding post-intervention, two hemostatic clips were successfully placed. Bleeding had stopped at the end of the procedure. A 5 mm polyp was found in the recto-sigmoid colon. The polyp was sessile. The polyp was removed with a hot snare. Resection and retrieval were complete. Internal hemorrhoids were found during retroflexion. The exam was otherwise without abnormality on direct and retroflexion views. Impression: - One 4 mm polyp in the ascending colon, removed with a cold snare. Resected and retrieved. Clips were placed. - One 5 mm polyp at the recto-sigmoid colon, removed with a hot snare. Resected and retrieved. - Internal hemorrhoids. - The examination was otherwise normal on direct and retroflexion views. Recommendation: - Discharge patient to home (with escort). - Return to referring physician as previously scheduled. - Repeat colonoscopy in 5 years for surveillance based on pathology results. Morgan Felix MD 11/09/2016 11:22:28 AM This report has been signed electronically. Note Initiated On: 11/09/2016 10:48 AM I attest to the content of the Intraoperative Record and orders documented therein, exceptions below
--- NOTE | 2016-11-09 11:23 | Discharge Instructions ---
Endoscopy Patient Instructions Date / Procedure(s) Performed Nov 09, 2016. Colonoscopy, EGD Allergy Information Coded Allergies: Dexmethylphenidate (Verified Allergy, Severe, CANNOT BREATHE, 11/02/16) Shrimp (Verified Allergy, Mild, HIVES, 11/02/16) CAN HAVE CERTAIN TYPES OF SHRIMPS Latex1 -Allergic Contact Dermititis (Verified Allergy, Unknown, BURNING SENSATION, RASH, RAISED WELTS, 11/02/16) Ibuprofen (Verified Adverse Reaction, Intermediate, "NOT ALLOWED" DUE TO H /O GASTRIC BYPASS, 11/02/16) Discharge Date / Findings Nov 09, 2016. Two polyps and internal hemorroids otherwise normal colon Normal upper endoscopy Medication Instructions Stopped Medication(s): All meds stopped yesterday. Provider Instructions Activity Restrictions - No exercising or heavy lifting for 24 hours. - Do not drink alcohol the day of the procedure. - Do not drive a car or operate machinery until the day after the procedure. - Do not make any important decisions or sign important papers in 24 hours after the procedure. Following Day: - Return to full activity which may include returning to work/school. Diet Start your diet with liquids and light foods (jello, soup, juice, toast). Then eat your usual diet if not nauseated. Treatment For Common After Affects For mild abdominal pain, bloating, or excessive gas: - Rest - Eat lightly - Lie on right side Follow-Up Information Follow-up with Dr. Frost as scheduled Anesthesia Information What You Should Know You have had a procedure that required some medicine to reduce anxiety and discomfort. This treatment is called moderate sedation. After receiving the treatment, you may be sleepy, but you will be able to breathe on your own. The effects of the treatment may last for several hours. Follow these instructions along with Activity/Diet recommendations noted above: * Do NOT do anything where dizziness or clumsiness would be dangerous. * Rest quietly at home today, then you can be up and about tomorrow. * Have a responsible person stay with you the rest of today. * You may have had an I.V. today. If so, you may take the dressing off later today. Recommendations Call your doctor if: * Trouble breathing * Continuous vomiting for more than 24 hours * Temperature above 101 degrees * Severe abdominal pain or bloating * Pain not relieved by pain medicine ordered * There is increased drainage or redness from any incision * A large amount of rectal bleeding greater than 2-3 tablespoons. (If you had a polyp/s removed or have hemorrhoids, a small amount of blood - from the rectum is to be expected.) * You have any unanswered questions or concerns. IN THE EVENT OF A SERIOUS EMERGENCY, GO TO THE NEAREST EMERGENCY ROOM Your discharge instructions were prepared by provider Morgan Felix. Patient Instructions Signature Page Mohini Ruiz Patient (or Guardian) Signature/Date: I have read and understand the instructions given to me by my caregivers. Caregiver/RN/Doctor Signature/Date: The above-named patient and/or guardian has received patient instructions on this date. + Original Patient Signature Page (only) stays with chart. Please make copy for patient.
[2016-11-09 12:12] VITALS: BP 102/61; PULSE 98; O2SAT 99
--- NOTE | 2016-11-09 12:16 | Anesthesiology Progress Note ---
Anesthesia Post Op Note Date & Time Nov 09, 2016 at 12:16 Vital Signs Pain Intensity: 0 Vital Signs Past 12 Hours Date Time Temp Pulse Resp B/P Pulse Ox O2 Delivery O2 Flow Rate FiO2 11/09/16 12:12 98 20 102/61 99 Room Air 11/09/16 11:51 100 20 101/60 99 Room Air 11/09/16 11:36 100 20 91/66 99 Room Air 11/09/16 11:21 104 20 100/66 99 Room Air 11/09/16 10:24 37 71 20 101/55 94 Room Air Notes Mental Status: alert / awake / arousable, participated in evaluation Pt Amnestic to Procedure: Yes Nausea / Vomiting: adequately controlled Pain: adequately controlled Airway Patency, RR, SpO2: stable & adequate BP & HR: stable & adequate Hydration State: stable & adequate Anesthetic Complications: no major complications apparent
== END | disposition home or self-care (01) ==
LOC: C.GI 09:38
PROVIDERS: ATTEND Internal Medicine
DX: D50.9 Iron deficiency anemia, unspecified (principal); D12.2 Benign neoplasm of ascending colon; D12.7 Benign neoplasm of rectosigmoid junction; K64.8 Other hemorrhoids; J45.909 Unspecified asthma, uncomplicated; F41.9 Anxiety disorder, unspecified; Z91.013 Allergy to seafood; Z91.040 Latex allergy status; Z98.84 Bariatric surgery status; G47.33 Obstructive sleep apnea (adult) (pediatric); Z68.29 Body mass index [BMI] 29.0-29.9, adult

== ENCOUNTER 2017-01-06 09:00 | Emergency (ER) | payer BC ==
[~2017-01-06] VITALS: Ht 170.2 cm; Wt 73.2 kg
[~2017-01-06 09:00] MED LIST changes: -AMIT10TA6 PO; -ASCO10003 PO; -HYDR-389 PO; -LACT10SO17 PO; -LIDOCAINE HCL 2% 2 ML VIAL (20MG/ML) ONE; -MIDAZOLAM HCL 1 MG/ML 2ML VIAL ONE; -OXYC-57 PO; -PHENYLEPHRINE 100MCG/ML 5ML SYR ONE; -PROPOFOL IV EMULSION 10 MG/ML 20 ML VIAL IV ONE; -RIFA550T2 PO; -SODIUM CHLORIDE 0.9% 500ML 500 ML IV ONE; -ZINC220T PO
[2017-01-06 09:04] VITALS: TEMP 36.8; Ht 170.2 cm; Wt 73.2 kg
[2017-01-06] MEDS ORDERED: LACT10SO17 PO (09:46)
[2017-01-06] MEDS ORDERED: HYDR-389 PO (09:46)
[2017-01-06] MEDS ORDERED: ZINC220T PO (09:46)
[2017-01-06] MEDS ORDERED: AMIT10TA6 PO (09:46)
[2017-01-06] MEDS ORDERED: RIFA550T2 PO (09:46)
[2017-01-06] MEDS ORDERED: OXYC-57 PO (09:46)
[2017-01-06] MEDS ORDERED: ASCO10003 PO (09:46)
[2017-01-06] MEDS ORDERED: SODIUM CHLORIDE 0.9% 1000ML 1,000 ML IV STA (10:05)
--- NOTE | 2017-01-06 10:12 | EMERGENCY ROOM VISIT NOTE ---
History Report prepared by Coty: Sherry Jasmine Under the Supervision of: Dr. Zohreh Paiz M.D. First contact with patient: 09:45 Chief Complaint: ABDOMINAL PAIN Stated Complaint: SHARP STOMACH PAINS & IN BACK,NAUSEA,SOB Nursing Triage Summary: severe abd to back started yesterday History of Present Illness The patient is a 36 year old female who presents to the Emergency Room with complaints of intermittent sharp abdominal pain beginning yesterday. The patient states that she has a history of liver disease and has had abdominal pain before but never as severe as she has experienced today. She reports that yesterday she had a 90 minute episode of severe abdominal cramping that radiated into her back. She notes that she had another 30 minute episode of this today that she describes as a similar feeling to labor. The patient complains of shortness of breath, difficulty focusing, diarrhea, and nausea. She denies any chest pain and fever. The patient reports that she has a history of gastric bypass, anemia, and liver disease. She notes that her last blood transfusion was in September. She states that she has edema in her legs and feet and has been worked up for blood clots many times before but has no history of blood clots. The patient notes that she had a colonoscopy previously that showed 2 polyps but her more recent colonoscopy in 2014 was normal. She states that she did not have her period for a year but recently got it and has been having some spotting and it is very light. The patient notes that she is not sexually active. Source of History: patient Onset: last night Position: abdomen Symptom Intensity: severe Quality: sharp Timing: intermittent Associated Symptoms: + SOB, + nausea, + diarrhea, No fevers, No chest pain Note: The patient complains of difficulty focusing. Review of Systems See HPI for pertinent positives & negatives. A total of 10 systems reviewed and were otherwise negative. Past Medical & Surgical Medical Problems: (1) Chronic anemia (2) Nonalcoholic steatohepatitis (JACOBO) Surgical Problems: (1) S/P gastric bypass Family History Cancer Diabetes mellitus Social History Smoking Status: Never Smoker Alcohol Use: occasionally Drug Use: none Marital Status: Housing Status: lives with family Occupation Status: unemployed Current/Historical Medications Scheduled Amitriptyline Hcl (Elavil), 10 MG PO HS Ascorbic Acid (Vitamin C), 1 TAB PO DAILY Dicyclomine Hcl (Dicyclomine Hcl), 20 MG PO TID Furosemide (Lasix), 60 MG PO BID17 Gabapentin (Neurontin), 100 MG PO TID Hydroxyzine Hcl (Atarax), 10 MG PO BID Lactulose (Chronulac), 15 ML PO DAILY Magnesium Oxide (Mag-Ox), 400 MG PO QAM Melatonin (Kp Melatonin), 3 MG PO HS Omeprazole (Prilosec), 40 MG PO BID Pediatric Multiple Vitamin W/ (Flintstones Gummies), 2 TABS PO QAM Potassium Chloride (K-Tabs), 3 TAB PO BID Rifaximin (Xifaxan), 1 TAB PO BID Spironolactone (Aldactone), 1 TAB PO BID Zinc Sulfate (Zinc Sulfate), 1 CAP PO BID Scheduled PRN Albuterol (Ventolin Hfa), 2 PUFFS INH Q4 PRN for Shortness of Breath Albuterol Sulf (Proventil 0.083% 2.5MG/3ML), 2.5 MG INH QID PRN for Shortness of Breath Lorazepam (Lorazepam), 0.5 MG PO HS PRN for Sleep Ondansetron Hcl (Zofran), 4 MG PO for Nausea Oxycodone/Acetaminophen 5MG/325MG (Percocet 5MG/325MG), 1 TABLET PO Q6H PRN for Pain Tramadol (Ultram), 50 MG PO Q8H PRN for Pain Allergies Coded Allergies: Dexmethylphenidate (Verified Allergy, Severe, CANNOT BREATHE, 01/06/17) Shrimp (Verified Allergy, Mild, HIVES, 01/06/17) CAN HAVE CERTAIN TYPES OF SHRIMPS Latex1 -Allergic Contact Dermititis (Verified Allergy, Unknown, BURNING SENSATION, RASH, RAISED WELTS, 01/06/17) Ibuprofen (Verified Adverse Reaction, Intermediate, "NOT ALLOWED" DUE TO H /O GASTRIC BYPASS, 01/06/17) Physical Exam Vital Signs Date Time Temp Pulse Resp B/P (MAP) Pulse Ox O2 Delivery O2 Flow Rate FiO2 01/06/17 13:39 82 18 114/68 98 Room Air 01/06/17 13:18 18 01/06/17 11:13 91 16 116/74 97 Room Air 01/06/17 09:04 36.8 102 20 124/72 99 Room Air Physical Exam Vital signs reviewed. General: Chronically ill-appearing, in no significant distress. HEENT: No scleral icterus, PERRLA, neck supple. Atraumatic. Cardiovascular: Regular rate and rhythm, no extra sounds. Pulmonary: Clear to auscultation bilaterally, normal work of breathing. Abdomen: Soft, mild diffuse abdominal discomfort to palpation, nondistended, positive bowel sounds. Musculoskeletal: Atraumatic, no peripheral edema. Neurologic: Patient awake alert and oriented x 3, full strength in all 4 extremities. Cranial nerves 2 through 12 grossly intact. Skin: Warm, dry, no rash, she has some spider angiomas to the anterior chest. Medical Decision & Procedures ER Provider Diagnostic Interpretation: Radiology results as stated below per my review and radiologist interpretation: ABDOMEN 2VIEW W/PA CHEST RTN FINDINGS: There is a right internal jugular central venous catheter. The heart is normal in size. There is no focal pulmonary consolidation. There is no free intraperitoneal air. Erect and supine views the abdomen reveal postsurgical changes are prior gastric bypass. There are metallic clips within the right mid abdomen. There are no transition zones indicate bowel obstruction. There is no pathologic bowel dilatation. On the erect view there are layering calcifications within the right abdomen. These likely represent gallstones. IMPRESSION: Postsurgical change. No evidence of bowel obstruction. No evidence of free air. Probable cholelithiasis. Electronically signed by: Elliott Alfred M.D. 01/06/2017 11:57 AM Dictated Date/Time: 01/06/2017 11:56 AM ULTRASOUND OF THE PELVIS FINDINGS: Uterus: The uterus is normal in size and echotexture, measuring 8.0 x 3.9 x 5.9 cm. Endometrium: The endometrium is normal in appearance, and the endometrial stripe is normal in thickness measuring up to 0.9 cm. Ovaries: The ovaries are normal in size and morphology. The right ovary measures 2.6 x 1.4 x 1.5 cm and the left ovary measures 3.2 x 1.8 x 2.0 cm. There are small bilateral ovarian follicles. Normal Doppler waveforms are shown within both ovaries. Pelvis: There is trace free fluid in the cul-de-sac. No concerning adnexal lesion is seen. IMPRESSION: 1. There is no acute sonographic abnormality identified in the pelvis. 2. There is trace and likely physiologic free fluid in the cul-de-sac. Electronically signed by: Oleg Berry M.D. 01/06/2017 12:31 PM Dictated Date/Time: 01/06/2017 12:[address] SCAN OF THE BRAIN WITHOUT IV CONTRAST FINDINGS: Brain parenchyma: The brain parenchyma is normal in appearance. There is no hemorrhage, mass effect, or evidence of acute territorial ischemia by CT criteria. Quintanilla-white matter is preserved. No extra-axial fluid collection is seen. Ventricles, sulci, cisterns: Normal in configuration. Intracranial vasculature: The visualized intracranial vasculature at the skull base is normal in appearance. Calvarium: Unremarkable. Sinuses and mastoids: The visualized paranasal sinuses are clear. The mastoid air cells are well pneumatized. Orbits: The bony orbits are grossly intact. IMPRESSION: No acute intracranial abnormality. Electronically signed by: Oleg Berry M.D. 01/06/2017 1:34 PM Dictated Date/Time: 01/06/2017 1:33 PM Laboratory Results 01/06/17 10:25 Red Blood Count 3.91, Mean Corpuscular Volume 87.2, Mean Corpuscular Hemoglobin 28.4, Mean Corpuscular Hemoglobin Concent 32.6, Mean Platelet Volume 10.8, Neutrophils (%) (Auto) 68.9, Lymphocytes (%) (Auto) 25.2, Monocytes (%) (Auto) 4.5, Eosinophils (%) (Auto) 1.0, Basophils (%) (Auto) 0.2, Neutrophils # (Auto) 3.56, Lymphocytes # (Auto) 1.30, Monocytes # (Auto) 0.23, Eosinophils # (Auto) 0.05, Basophils # (Auto) 0.01 01/06/17 10:25 Test 01/06/17 09:20 01/06/17 10:25 Urine Color YELLOW Urine Appearance CLEAR (CLEAR) Urine pH 7.0 (4.5-7.5) Urine Specific [place] 1.012 (1.000-1.030) Urine Protein NEG (NEG) Urine Glucose (UA) NEG (NEG) Urine Ketones NEG (NEG) Urine Occult Blood 3+ (NEG) Urine Nitrite NEG (NEG) Urine Bilirubin NEG (NEG) Urine Urobilinogen NEG (NEG) Urine Leukocyte Esterase TRACE (NEG) Urine WBC (Auto) 1-5 /hpf (0-5) Urine RBC (Auto) 0-4 /hpf (0-4) Urine Hyaline Casts (Auto) 0 /lpf (0-5) Urine Epithelial Cells (Auto) >30 /lpf (0-5) Urine Bacteria (Auto) NEG (NEG) White Blood Count 5.16 K/uL (4.8-10.8) Red Blood Count 3.91 M/uL (4.2-5.4) Hemoglobin 11.1 g/dL (12.0-16.0) Hematocrit 34.1 % (37-47) Mean Corpuscular Volume 87.2 fL (80-100) Mean Corpuscular Hemoglobin 28.4 pg (25-34) Mean Corpuscular Hemoglobin Concent 32.6 g/dl (32-36) Platelet Count 128 K/uL (130-400) Mean Platelet Volume 10.8 fL (7.4-10.4) Neutrophils (%) (Auto) 68.9 % Lymphocytes (%) (Auto) 25.2 % Monocytes (%) (Auto) 4.5 % Eosinophils (%) (Auto) 1.0 % Basophils (%) (Auto) 0.2 % Neutrophils # (Auto) 3.56 K/uL (1.4-6.5) Lymphocytes # (Auto) 1.30 K/uL (1.2-3.4) Monocytes # (Auto) 0.23 K/uL (0.11-0.59) Eosinophils # (Auto) 0.05 K/uL (0-0.5) Basophils # (Auto) 0.01 K/uL (0-0.2) RDW Standard Deviation 46.4 fL (36.4-46.3) RDW Coefficient of Variation 14.4 % (11.5-14.5) Immature Granulocyte % (Auto) 0.2 % Immature Granulocyte # (Auto) 0.01 K/uL (0.00-0.02) Prothrombin Time 12.5 SECONDS (9.0-12.0) Prothromb Time International Ratio 1.2 (0.9-1.1) Activated Partial Thromboplast Time 35.6 SECONDS (21.0-31.0) Partial Thromboplastin Ratio 1.4 Anion Gap 11.0 mmol/L (3-11) Est Creatinine Clear Calc Drug Dose 118.6 ml/min Estimated GFR () 134.3 Estimated GFR (Non- 115.8 BUN/Creatinine Ratio 12.1 (10-20) Calcium Level 8.8 mg/dl (8.5-10.1) Magnesium Level 2.0 mg/dl (1.8-2.4) Total Bilirubin 1.4 mg/dl (0.2-1) Direct Bilirubin 0.6 mg/dl (0-0.2) Aspartate Amino Transf (AST/SGOT) 28 U/L (15-37) Alanine Aminotransferase (ALT/SGPT) 20 U/L (12-78) Alkaline Phosphatase 85 U/L (45-117) Ammonia 27.0 umol/L (11-32) Total Protein 7.3 gm/dl (6.4-8.2) Albumin 3.6 gm/dl (3.4-5.0) Laboratory results per my review. Medications Administered Medications (Trade) Dose Ordered Sig/Jakub Route Start Time Stop Time Status Last Admin Dose Admin Sodium Chloride 1,000 ml @ 125 mls/hr Q8H STAT IV 01/06/17 10:05 01/06/17 14:53 DC 01/06/17 10:45 125 MLS/HR Heparin Sodium (Porcine) (Heparin 100 Unit/ml 5ml Flush) 5 ml STK-MED ONCE .ROUTE 01/06/17 13:55 01/06/17 13:56 DC 01/06/17 13:55 5 ML ECG Indication: abdominal pain Rate (beats per minute): 81 Rhythm: normal sinus Findings: no acute ischemic change, no ectopy, other (Prolonged QT interval, QTC of 487) ED Course 0945: Past medical records reviewed. The patient was evaluated in room B4. A complete history and physical examination was performed. 1005: Sodium Chloride 1000 ml @ 125 mls/hr IV. 1352: Upon reevaluation, the patient appeared to have improvement of her symptoms. I discussed findings with the patient. She verbalized agreement of the treatment plan. The patient was discharged home. Medical Decision Differential diagnosis includes encephalopathy, liver disease, infectious etiology, electrolyte abnormality, anemia. Medication Reconciliation: I attest that I have personally reviewed the patient' s current medication list. Blood Pressure Screening: Patient was found to have normal blood pressure on screening and does not require follow-up. This pt was evaluated and appeared to be in no distress. IV access was obtained and lab work was drawn. Pt was placed on the quality assurance monitor body. Pt was hydrated with NSS. Abd XR series was obtained and is normal. US of the pelvis was performed d/t bloating and dysfunctional bleeding. This study is negative. CT head is normal. Lab work reveals an ammonia of 27, UA is significant for occult blood and epithelial cells, no infectious findings. Pt was informed of the findings. I believe she is stable for d/c and f/u with PCP. She will return to the ED for worsening of symptoms or any medical concerns. Impression Primary Impression: Abdominal bloating Additional Impression: Chronic liver disease Scribe Attestation The scribe's documentation has been prepared under my direction and personally reviewed by me in its entirety. I confirm that the note above accurately reflects all work, treatment, procedures, and medical decision making performed by me. Departure Information Dispostion Home / Self-Care Referrals Roxie Frost M.D. (PCP) Forms Call Back Authorization, HOME CARE DOCUMENTATION FORM, IMPORTANT VISIT INFORMATION Patient Instructions My [facility] Additional Instructions Diagnosis: Abdominal bloating, confusion, chronic liver disease Please continue her medications as prescribed. Follow-up with gastroenterology for reevaluation this week. Return to the ER for worsening of symptoms, fever, increased pain or any concerns. Problem Qualifiers
[2017-01-06 10:42] LABS: BASO % 0.2 %; BASO ABS # 0.01 K/uL (0-0.2); COMPLETE YES; HEMATOCRIT 34.1 % (37-47); IG% 0.2 %; LYMPH % 25.2 %; MEAN CELL VOLUME 87.2 fL (80-100); MEAN CORPUSCULAR HEMOGLOBIN 28.4 pg (25-34); MEAN CORPUSCULAR HGB CONC 32.6 g/dl (32-36); MEAN PLATELET VOLUME 10.8 fL (7.4-10.4); MONO % 4.5 %; NEUT % 68.9 %; PLATELET COUNT 128 K/uL (130-400); RED BLOOD COUNT 3.91 M/uL (4.2-5.4); WHITE BLOOD COUNT 5.16 K/uL (4.8-10.8)
[2017-01-06 10:54] LABS: INR 1.2 (0.9-1.1); PARTIAL THROMBOPLASTIN RATIO 1.4; PROTHROMBIN TIME (PATIENT) 12.5 SECONDS (9.0-12.0)
[2017-01-06 11:03] LABS: BUN/CREATININE RATIO 12.1 (10-20); CALCIUM 8.8 mg/dl (8.5-10.1); CREATININE 0.65 mg/dl (0.60-1.20); POTASSIUM 3.4 mmol/L (3.5-5.1)
[2017-01-06 11:25] LABS: URINE APPEARANCE CLEAR (CLEAR); URINE BILIRUBIN NEG (NEG); URINE COLOR YELLOW; URINE EPITHELIAL CELL AUTO >30 /lpf (0-5); URINE NITRITE NEG (NEG); URINE SPECIFIC GRAVITY 1.012 (1.000-1.030); UROBILINOGEN NEG (NEG); ZZUR CULT IF INDIC CLEAN CATCH NO
[2017-01-06 11:26] LABS: MANUAL MICROSCOPIC REQUIRED? NO; REVIEW REQ? NO
--- NOTE | 2017-01-06 11:59 | DIAGNOSTIC IMAGING REPORT ---
ABDOMEN 2VIEW W/PA CHEST RTN CLINICAL HISTORY: abd pain, s/p gastric bypass, JACOBO COMPARISON STUDY: Chest x-ray dated 10/06/2016 FINDINGS: There is a right internal jugular central venous catheter. The heart is normal in size. There is no focal pulmonary consolidation. There is no free intraperitoneal air. Erect and supine views the abdomen reveal postsurgical changes are prior gastric bypass. There are metallic clips within the right mid abdomen. There are no transition zones indicate bowel obstruction. There is no pathologic bowel dilatation. On the erect view there are layering calcifications within the right abdomen. These likely represent gallstones. IMPRESSION: Postsurgical change. No evidence of bowel obstruction. No evidence of free air. Probable cholelithiasis. Electronically signed by: Elliott Alfred M.D. 01/06/2017 11:57 AM Dictated Date/Time: 01/06/2017 11:56 AM
--- NOTE | 2017-01-06 12:32 | DIAGNOSTIC IMAGING REPORT ---
ULTRASOUND OF THE PELVIS CLINICAL HISTORY: Abdominal bloating. Dysfunctional uterine bleeding. COMPARISON STUDY: Pelvic ultrasound dated 02/21/2007 TECHNIQUE: Real-time, grayscale, and color flow sonography of the pelvis is performed both transabdominally and endovaginally. Images are reviewed in the transverse and longitudinal planes. FINDINGS: Uterus: The uterus is normal in size and echotexture, measuring 8.0 x 3.9 x 5.9 cm. Endometrium: The endometrium is normal in appearance, and the endometrial stripe is normal in thickness measuring up to 0.9 cm. Ovaries: The ovaries are normal in size and morphology. The right ovary measures 2.6 x 1.4 x 1.5 cm and the left ovary measures 3.2 x 1.8 x 2.0 cm. There are small bilateral ovarian follicles. Normal Doppler waveforms are shown within both ovaries. Pelvis: There is trace free fluid in the cul-de-sac. No concerning adnexal lesion is seen. IMPRESSION: 1. There is no acute sonographic abnormality identified in the pelvis. 2. There is trace and likely physiologic free fluid in the cul-de-sac. Electronically signed by: Oleg Berry M.D. 01/06/2017 12:31 PM Dictated Date/Time: 01/06/2017 12:30 PM
--- NOTE | 2017-01-06 13:36 | DIAGNOSTIC IMAGING REPORT ---
CT SCAN OF THE BRAIN WITHOUT IV CONTRAST CLINICAL HISTORY: Change in mental status. Blurred vision. Dizziness. COMPARISON STUDY: No priors. TECHNIQUE: Unenhanced axial CT scan of the brain is performed from the vertex to the skull base. Automated dose control exposure was utilized. CT DOSE: 537.48 mGy.cm FINDINGS: Brain parenchyma: The brain parenchyma is normal in appearance. There is no hemorrhage, mass effect, or evidence of acute territorial ischemia by CT criteria. Quintanilla-white matter is preserved. No extra-axial fluid collection is seen. Ventricles, sulci, cisterns: Normal in configuration. Intracranial vasculature: The visualized intracranial vasculature at the skull base is normal in appearance. Calvarium: Unremarkable. Sinuses and mastoids: The visualized paranasal sinuses are clear. The mastoid air cells are well pneumatized. Orbits: The bony orbits are grossly intact. IMPRESSION: No acute intracranial abnormality. Electronically signed by: Oleg Berry M.D. 01/06/2017 1:34 PM Dictated Date/Time: 01/06/2017 1:33 PM
[2017-01-06 13:39] VITALS: BP 114/68; PULSE 82; O2SAT 98
== END 2017-01-06 14:15 | disposition home or self-care (01) ==
LOC: C.EDB 09:01
DX: R14.0 Abdominal distension (gaseous) (principal); K76.9 Liver disease, unspecified; D64.9 Anemia, unspecified; K75.81 Nonalcoholic steatohepatitis (NASH); Z98.84 Bariatric surgery status; Z79.899 Other long term (current) drug therapy; Z88.8 Allergy status to other drugs, medicaments and biological substances; Z91.018 Allergy to other foods; Z91.040 Latex allergy status; Z80.9 Family history of malignant neoplasm, unspecified; Z83.3 Family history of diabetes mellitus

== ENCOUNTER → 2018-03-09 | Day surgery (SDC) | payer OTHER ==
[2018-03-02 13:35] VITALS: BMI 26.0
[~2018-03-09] VITALS: Ht 170.2 cm; Wt 77.3 kg
[~2018-03-09] MED LIST changes: -ALBINS/ INH; +ALBINS/ NEB; +AMIT10TA6 PO; +CHOL1000 PO; +CRG/20 PO; -CYCL5TAB PO; +DICY10CA12 PO; -DICY20TA10 PO; +FENTANYL CITRATE INJ 50 MCG/1 ML 2 ML VIAL ONE; +FOLI1TAB8 PO; -FRS/40 PO; -FURO-85 PO; -GABA-112 PO; +HYDR-389 PO; +LIDOCAINE HCL 2% 2 ML VIAL (20MG/ML) ONE; +LSX20 PO; +MIDAZOLAM HCL 1 MG/ML 2ML VIAL ONE; +MORP15TA PO; +NRN100 PO; -OMEP40CA41 PO; -ONDA4TAB46 PO; +ONDA4TAB9 PO; +PROPOFOL IV EMULSION 10 MG/ML 20 ML VIAL ONE; +RIFA550T2 PO; +SODIUM CHLORIDE 0.9% 500ML 500 ML IV ONE; -SPIR100T PO; +SPRN100 PO; -TRAM-10 PO; +TRN400 PO
--- NOTE | 2018-03-09 08:25 | Endo History and Physical ---
History & Physical Date of Service: Mar 09, 2018. Chief Complaint: Referring Physician: History of Present Illness 37 yo presenting for EGD for variceal bleeding f/u, no signs of recent bleeding. On BB. Past Medical History Fractures, Asthma, Anxiety, Reflux, Sleep Apnea, Liver Disease, Depression Past Surgical History Hx Cardiac Surgery: No Hx Internal Defibrillator: No Hx Pacemaker: No Hx Abdominal Surgery: Yes (GASTRIC BYPASS) Hx of Implantable Prosthesis: No Hx Post-Op Nausea and Vomiting: No Hx Cancer Surgery: No Hx Thoracic Surgery: No Hx Orthopedic: No Hx Urinary Tract Surgery: No Family History None Social History Smoking Status: Never Smoker Hx Substance Use: No Hx Alcohol Use: No Allergies Coded Allergies: Dexmethylphenidate (Verified Allergy, Severe, CANNOT BREATHE, 03/02/18) Latex1 -Allergic Contact Dermititis (Verified Allergy, Unknown, BURNING SENSATION, RASH, RAISED WELTS, 03/02/18) Ibuprofen (Verified Adverse Reaction, Intermediate, "NOT ALLOWED" DUE TO H /O GASTRIC BYPASS/LIVER FAILURE, 03/02/18) Current Medications Reported Home Medications Medications Dose Route/Sig Max Daily Dose Days Date Category Dose Instructions Xifaxan (Rifaximin) 550 Mg Tab 550 Mg PO BID 03/02/18 Reported Kp Melatonin (Melatonin) 3 Mg Tab 1 Tab PO HS 30 03/02/18 Reported Folvite (Folic Acid) 1 Mg Tab 1 Mg PO QAM 03/02/18 Reported Vitamin D3 (Cholecalciferol) 1,000 Unit Tab 1 Tab PO QAM 90 03/02/18 Reported Dicyclomine Hcl 10 Mg Cap 10 Mg PO ACHS 02/14/18 Reported Pentoxifylline ER (Pentoxifylline) 400 Mg Tabcr 400 Mg PO TIDM 02/14/18 Reported PT STOPPED TAKING 1 WEEK AGO-SEVERE NAUSEA Spironolactone 100 Mg Tab 200 Mg PO BID 02/14/18 Reported Furosemide 20 Mg Tab 60 Mg PO BID 02/14/18 Reported Corgard (Nadolol) 20 Mg Tab 20 Mg PO QAM 02/14/18 Reported Morphine Sulfate Ir (Morphine Sulfate) 15 Mg Tab 7.5-15 Mg PO Q8 PRN 02/14/18 Reported Ondansetron HCl (Ondansetron) 4 Mg Tab 4 Mg PO Q8 PRN 02/14/18 Reported Gabapentin 100 Mg Cap 100 Mg PO TID PRN 01/23/18 Reported Atarax (Hydroxyzine Hcl) 10 Mg Tab 10 Mg PO BID PRN 01/06/17 Reported Elavil (Amitriptyline Hcl) 10 Mg Tab 10 Mg PO HS PRN 01/06/17 Reported K-Tabs (Potassium Chloride) 10 Meq Tab 40 Meq PO BID 11/02/16 Reported Lorazepam 0.5 Mg Tab 0.5 Mg PO HS PRN 10/06/16 Reported Ventolin Hfa (Albuterol) 60 Puffs/5400 Mcg Aers 2 Puffs INH Q4H PRN 10/06/16 Reported Proventil 0.083% 2.5MG/3ML (Albuterol Sulf) 2.5 Mg/3 Ml Nebu 3 Ml NEB QID PRN 08/10/16 Reported Mag-Ox (Magnesium Oxide) 400 Mg Tab 400 Mg PO QAM 08/10/16 Reported Flintstones Gummies (Pediatric Multiple Vitamin W/) 1 Chw Chw 2 Tabs PO QAM 07/05/16 Reported Vital Signs Weight (Kilograms): 77.27 Height (Feet): 5 Height (Inches): 7 Physical Exam General Appearance: WD/WN, no apparent distress Respiratory/Chest: Respiratory effort: no dyspnea Auscultation: breath sounds normal Cardiovascular: Heart Auscultation: RRR, normal S1, normal S2 Abdomen: Bowel Sounds: normal Inspection & Palpation: soft, non-distended Assessment and Plan 37 yo presenting for EGD f/u of varices
[2018-03-09 08:31] VITALS: Ht 170.2 cm; Wt 77.3 kg
--- NOTE | 2018-03-09 09:39 | GI REPORT ---
Patient Name: Mohini Ruiz Procedure Date: 03/09/2018 9:05 AM Date of : 1980 Admit Type: Outpatient Age: 37 Gender: Female Attending MD: Morgan Felix MD Procedure: Upper GI endoscopy Providers: Morgan Felix MD Referring MD: Benny Singleton MD, Bebe Thompson NP, Sap[facility] Indications: 2nd degree variceal eradication (following bleed) Medicines: Monitored Anesthesia Care Complications: No immediate complications. Estimated blood loss: None. Estimated Blood Loss: Estimated blood loss: none. Procedure: Pre-Anesthesia Assessment: - Pre-Anesthesia Assessment: - Prior to the procedure, a History and Physical was performed, and patient medications, allergies and sensitivities were reviewed. The patient's tolerance of previous anesthesia was reviewed. Please see Lánz[facility] for complete details. - The risks and benefits of the procedure and the sedation options and risks were discussed with the patient. All questions were answered and informed consent was obtained. - Patient identification and proposed procedure were verified prior to the procedure by the physician and the nurse. The procedure was verified in the pre-procedure area in the procedure room. After obtaining informed consent, the endoscope was passed carefully and meticuously under direct vision and only advanced when the lumen was clearly identified, C02 insuflation was utilized throughout the entirity of the procedure. Throughout the procedure, the patient's blood pressure, pulse, and oxygen saturations were monitored continuously. After obtaining informed consent, the endoscope was passed under direct vision. Throughout the procedure, the patient's blood pressure, pulse, and oxygen saturations were monitored continuously. The scope was introduced through the mouth, and advanced to the second part of duodenum. The upper GI endoscopy was accomplished without difficulty. The patient tolerated the procedure well. Findings: Possible small Grade I, small (< 5 mm) varices were found in the lower third of the esophagus,. They were diminutive in size and really were not apparent even without insuflation but appeared to be flat veins in distal esophagus. No stigmata of recent bleeding were evident and no red neva signs were present. Stigmata of prior treatment were evident with scarring. No further banding could be pursued. Evidence of a Renuka-en-Y gastrojejunostomy was found. The gastrojejunal anastomosis was characterized by healthy appearing mucosa. The examined jejunum was normal. Impression: - Non-bleeding grade I and small (< 5 mm) esophageal varices. - Consider TIPS if rebleeds given prior treatment, exam today, and age as this has been shown to improve mortality. - Renuka-en-Y gastrojejunostomy with gastrojejunal anastomosis characterized by healthy appearing mucosa. - Normal examined jejunum. - No specimens collected. Recommendation: - Written discharge instructions were provided to the patient. - Discharge patient to home (with escort). - Continue present medications. - Titrate Nadolol to HR of 55-65 BPM. - Return to referring physician as previously scheduled. - Liver transplant evaluation referral given meld 16-19. Morgan Felix MD 03/09/2018 9:39:41 AM This report has been signed electronically. Note Initiated On: 03/09/2018 9:05 AM Number of Addenda: 0 I attest to the content of the Intraoperative Record and orders documented therein, exceptions below {[id number]}
--- NOTE | 2018-03-09 09:44 | Discharge Instructions ---
Endoscopy Patient Instructions Date / Procedure(s) Performed Mar 09, 2018. EGD Allergy Information Coded Allergies: Dexmethylphenidate (Verified Allergy, Severe, CANNOT BREATHE, 03/02/18) Latex1 -Allergic Contact Dermititis (Verified Allergy, Unknown, BURNING SENSATION, RASH, RAISED WELTS, 03/02/18) Ibuprofen (Verified Adverse Reaction, Intermediate, "NOT ALLOWED" DUE TO H /O GASTRIC BYPASS/LIVER FAILURE, 03/02/18) Discharge Date / Findings Mar 09, 2018. Findings: Possible small Grade I, small (< 5 mm) varices were found in the lower third of the esophagus,. They were diminutive in size and really were not apparent even without insuflation but appeared to be flat veins in distal esophagus. No stigmata of recent bleeding were evident and no red neva signs were present. Stigmata of prior treatment were evident with scarring. No further banding could be pursued. Evidence of a Renuka-en-Y gastrojejunostomy was found. The gastrojejunal anastomosis was characterized by healthy appearing mucosa. The examined jejunum was normal. Impression: - Non-bleeding grade I and small (< 5 mm) esophageal varices. - Consider TIPS if rebleeds given prior treatment, exam today, and age as this has been shown to improve mortality. - Renuka-en-Y gastrojejunostomy with gastrojejunal anastomosis characterized by healthy appearing mucosa. - Normal examined jejunum. - No specimens collected. Recommendation: - Written discharge instructions were provided to the patient. - Discharge patient to home (with escort). - Continue present medications. - Titrate Nadolol to HR of 55-65 BPM. - Return to referring physician as previously scheduled. - Liver transplant evaluation referral given meld 16- Provider Instructions Activity Restrictions - No exercising or heavy lifting for 24 hours. - Do not drink alcohol the day of the procedure. - Do not drive a car or operate machinery until the day after the procedure. - Do not make any important decisions or sign important papers in 24 hours after the procedure. Following Day: - Return to full activity which may include returning to work/school. Diet Start your diet with liquids and light foods (jello, soup, juice, toast). Then eat your usual diet if not nauseated. Treatment For Common After Affects For mild abdominal pain, bloating, or excessive gas: - Rest - Eat lightly - Lie on right side Follow-Up Information Follow-up with DR. GAR as scheduled Anesthesia Information What You Should Know You have had a procedure that required some medicine to reduce anxiety and discomfort. This treatment is called moderate sedation. After receiving the treatment, you may be sleepy, but you will be able to breathe on your own. The effects of the treatment may last for several hours. Follow these instructions along with Activity/Diet recommendations noted above: * Do NOT do anything where dizziness or clumsiness would be dangerous. * Rest quietly at home today, then you can be up and about tomorrow. * Have a responsible person stay with you the rest of today. * You may have had an I.V. today. If so, you may take the dressing off later today. Recommendations Call your doctor if: * Trouble breathing * Continuous vomiting for more than 24 hours * Temperature above 101 degrees * Severe abdominal pain or bloating * Pain not relieved by pain medicine ordered * There is increased drainage or redness from any incision * A large amount of rectal bleeding greater than 2-3 tablespoons. (If you had a polyp/s removed or have hemorrhoids, a small amount of blood - from the rectum is to be expected.) * You have any unanswered questions or concerns. IN THE EVENT OF A SERIOUS EMERGENCY, GO TO THE NEAREST EMERGENCY ROOM Your discharge instructions were prepared by provider Morgan Felix. Patient Instructions Signature Page Mohini Ruiz Patient (or Guardian) Signature/Date: I have read and understand the instructions given to me by my caregivers. Caregiver/RN/Doctor Signature/Date: The above-named patient and/or guardian has received patient instructions on this date. + Original Patient Signature Page (only) stays with chart. Please make copy for patient.
--- NOTE | 2018-03-09 09:45 | Anesthesiology Progress Note ---
Anesthesia Post Op Note Date & Time Mar 09, 2018 at 09:44 Vital Signs Pain Intensity: 0 Vital Signs Past 12 Hours Date Time Temp Pulse Resp B/P (MAP) Pulse Ox O2 Delivery O2 Flow Rate FiO2 03/09/18 09:27 36.0 80 12 97/53 (68) 95 Room Air 03/09/18 08:35 36.8 74 16 105/67 (80) 98 Room Air Notes Mental Status: alert / awake / arousable, participated in evaluation Pt Amnestic to Procedure: Yes Nausea / Vomiting: adequately controlled Pain: adequately controlled Airway Patency, RR, SpO2: stable & adequate BP & HR: stable & adequate Hydration State: stable & adequate Anesthetic Complications: no major complications apparent
[2018-03-09 09:57] VITALS: BP 107/61; PULSE 77; O2SAT 95
== END | disposition home or self-care (01) ==
LOC: C.GI 08:01
PROVIDERS: ATTEND Internal Medicine
DX: I85.00 Esophageal varices without bleeding (principal); K21.9 Gastro-esophageal reflux disease without esophagitis; J45.909 Unspecified asthma, uncomplicated; F32.9 Major depressive disorder, single episode, unspecified; G47.30 Sleep apnea, unspecified; Z98.84 Bariatric surgery status; Z91.040 Latex allergy status; Z88.6 Allergy status to analgesic agent